=== PATIENT | female | born 1975 | race American Indian/Alaskan Native ===

== ENCOUNTER 2018-07-28 01:48 | Inpatient (IN) | payer MEDICAID ==
[2018-07-28] MEDS ORDERED: LACTATED RINGERS 500 ML IV ONE (03:29)
[2018-07-28] MEDS ORDERED: AMBIEN PO PRN (03:42)
[2018-07-28] MEDS ORDERED: ZOFRAN IV PRN ×2 (03:42→22:02)
[2018-07-28] MEDS ORDERED: ZOFRAN ONE ×2 (03:43→19:07)
[2018-07-28 03:44] LABS: Hematocrit 40.6 % (30.3-42.9); Hemoglobin 13.4 gm/dl (10.1-14.3); Mean Corpuscular HGB Conc 33 % (30-34); Mean Corpuscular Volume 82 fl (79-97); Platelet Count 146 K/mm3 (140-440); Red Blood Count 4.98 M/mm3 (3.65-5.03); Red Cell Distribution Width 15.9 % (13.2-15.2)
[2018-07-28] MEDS ORDERED: LACTATED RINGERS 1,000 ML IV SCH ×3 (04:00→18:00)
[2018-07-28] MEDS ORDERED: MAGNESIUM SULFATE 4GM/100ML 4 GM/100 ML BAG IV ONE (04:03)
[2018-07-28 04:09] LABS: Alanine Aminotransferase 323 units/L (7-56); Uric Acid 5.7 mg/dL (3.5-7.6)
[2018-07-28 04:09] LABS: Amorphous Crystals,Urine 2+; Bilirubin,Urine NEG (Negative); Blood,Urine SM (Negative); Color,Urine Amber (Yellow); Mucus,Urine FEW /HPF; Urobilinogen,Urine < 2.0 mg/dL (<2.0)
[2018-07-28 04:13] LABS: Protein,Urine >500 mg/dL (Negative)
[2018-07-28] MEDS: TYLENOL PO PRN (04:14)
[2018-07-28] MEDS: MAGNESIUM SULFATE 40GM/1000ML 40 GM/1,000 ML BAG IV SCH (04:49)
[2018-07-28] MEDS ORDERED: APRESOLINE IV ONE (05:31)
[2018-07-28] MEDS ORDERED: APRESOLINE IV PRN (05:36)
[2018-07-28] MEDS: NORMODYNE PO SCH ×2 (05:48→11:32)
[2018-07-28 09:12] LABS: INR 1.01 (0.87-1.13)
[2018-07-28 09:13] LABS: Partial Thromboplastin Time 29.5 Sec. (24.2-36.6)
--- NOTE | 2018-07-28 09:46 | History and Physical Report ---
History of Present Illness Date of examination: 07/28/18 Date of admission: 07/28/18 03:56 Chief complaint: I'm having pain and vomiting. History of present illness: Pt is a 42 year old who presents to L&D with complaint of headache, RUQ pain that started 3 hours after eating and constant spitting (inabilty to swallow spit). Patient denies any history of hypertension with this and she was not on meds. She denies any complications with any of her other pregnancies. records are not available for review. Past History Past Medical History: no pertinent history Past Surgical History: no surgical history Family/Genetic History: none Social history: - Obstetrical History Expected Date of Delivery: 08/19/18 Actual Gestation: 36 Week(s) 6 Day(s) : 5 Number of Living Children: 3 Medications and Allergies Allergies Allergy/AdvReac Type Severity Reaction Status Date / Time No Known Allergies Allergy Unverified 07/28/18 03:01 Active Meds: Active Medications Acetaminophen (Tylenol) 650 mg PO Q6H PRN PRN Reason: Pain, Mild (1-3) Last Admin: 07/28/18 04:14 Dose: 650 mg Documented by: Hydralazine HCl (Apresoline) 5 mg IV Q30MIN PRN PRN Reason: Blood Pressure Lactated Ringer's (Lactated Ringers) 1,000 mls @ 75 mls/hr IV DIRECT LUIS MANUEL Last Admin: 07/28/18 05:12 Dose: 75 mls/hr Documented by: Magnesium Sulfate (Magnesium Sulfate 40gm/1000ml) 40 gm in 1,000 mls @ 50 mls/hr IV DIRECT LUIS MANUEL Last Admin: 07/28/18 04:49 Dose: 2 gm/hr, 50 mls/hr Documented by: Labetalol HCl (Normodyne) 200 mg PO BID LUIS MANUEL Last Admin: 07/28/18 05:48 Dose: 200 mg Documented by: Ondansetron HCl (Zofran) 4 mg IV Q4H PRN PRN Reason: Nausea And Vomiting Last Admin: 07/28/18 04:15 Dose: 4 mg Documented by: Zolpidem Tartrate (Ambien) 10 mg PO QHS PRN PRN Reason: Insomnia Review of Systems All systems: negative Constitutional: malaise Ears, nose, mouth and throat: other (ptylism) Gastrointestinal: nausea, vomiting Genitourinary: contractions - Vital Signs Vital signs: Vital Signs Pulse BP 62 197/97 07/28/18 01:55 07/28/18 01:55 Temp Pulse Resp BP Pulse Ox 97.9 F 101 H 18 123/56 95 07/28/18 03:59 07/28/18 09:34 07/28/18 03:59 07/28/18 09:21 07/28/18 09:34 - Physical Exam Breasts: Positive: deferred Cardiovascular: Regular rate, Normal S1, Normal S2 Lungs: Positive: Clear to auscultation, Normal air movement Abdomen: Positive: normal appearance, soft, normal bowel sounds. Negative: distention, tenderness Genitourinary (Female): Positive: normal external genitalia Vulva: both: normal Vagina: Positive: normal moisture. Negative: discharge Cervix: Negative: lesion, discharge Uterus: Positive: normal size, normal contour Adnexa: both: normal Anus/Rectum: Positive: normal perianal skin, heme negative. Negative: rectal mass, hemorrhoids Extremities: Deep Tendon Reflex Grade: Normal +2 - Obstetrical FHR: auscultation normal Cervical Dilatation: 3 Cervical Effacement Percentage: 50 station: posterior Uterine Contraction Frequency (min): 6 Uterine Contraction Pattern: Irregular Results Result Diagrams: 07/28/18 02:45 07/28/18 02:45 Abnormal lab results 07/28/18 07/28/18 07/28/18 Range/Units 02:45 02:45 03:50 WBC 12.2 H (4.5-11.0) K/mm3 MCH 27 L (28-32) pg RDW 15.9 H (13.2-15.2) % AST 388 H (5-40) units/L ALT 323 H (7-56) units/L Lactate Dehydrogenase 756 H (91-180) units/L Urine WBC (Auto) 11.0 H (0.0-6.0) /HPF U Epithel Cells (Auto) 26.0 H (0-13.0) /HPF All other labs normal. Assessment and Plan IUP at 36.6 weeks with here with sudden onset RUQ pain and vomiting and elevated BP, which is now resolved. Patient has persistent ptyalism but has not had any recent vomiting. Patient has elevated liver enzymes as well as moderate protein. Dff Dx: Pre-eclampsia vs. Acute cholecystitis. Will begin magnesium for seizure prophylaxis while collecting 24 hour urine. Repeat labs in the am. Continue to monitor. Continue NPO.
[2018-07-28 14:59] LABS: Alanine Aminotransferase 540 units/L (7-56)
[2018-07-28 16:16] LABS: Basophils % (Auto) 0.1 % (0.0-1.8); Eosinophils % (Auto) 0.1 % (0.0-4.3); Hematocrit 30.1 % (30.3-42.9); Hemoglobin 10.2 gm/dl (10.1-14.3); Lymphocytes # (Auto) 1.4 K/mm3 (1.2-5.4); Lymphocytes % (Auto) 13.3 % (13.4-35.0); Mean Corpuscular HGB Conc 34 % (30-34); Mean Corpuscular Volume 81 fl (79-97); Monocytes # (Auto) 0.8 K/mm3 (0.0-0.8); Monocytes % (Auto) 7.9 % (0.0-7.3); Red Cell Distribution Width 15.7 % (13.2-15.2)
[2018-07-28 16:20] LABS: Platelet Count 51 K/mm3 (140-440)
[2018-07-28 16:28] LABS: Uric Acid 6.7 mg/dL (3.5-7.6)
[2018-07-28] MEDS ORDERED: NACL 0.9% 500 ML 500 ML IV ONE ×3 (16:55→17:22)
[2018-07-28] MEDS ORDERED: BICITRA ONE (17:29)
[2018-07-28] MEDS ORDERED: REGLAN ONE (17:30)
[2018-07-28] MEDS ORDERED: PEPCID IV ONE ×2 (17:30→19:00)
[2018-07-28] MEDS ORDERED: PITOCin/NS 20 UNIT/1000ML DRIP 20,000 MILLIUNITS/1,000 ML BAG IV ONE (17:38)
[2018-07-28] MEDS ORDERED: ANCEF/STERILE WATER 2 GM/20 ML 2 GM/20 ML SYRINGE IV NR (18:00)
[2018-07-28] MEDS ORDERED: PITOCin/NS 20 UNIT/1000ML DRIP 20 UNITS/1,000 ML BAG IV SCH ×2 (18:00→22:02)
[2018-07-28] MEDS ORDERED: TRANEXAMIC ACID ONE (18:02)
[2018-07-28] MEDS ORDERED: Vasostrict ONE (18:06)
[2018-07-28] MEDS ORDERED: QUELICIN ONE (18:10)
[2018-07-28] MEDS ORDERED: DIPRIVAN 10 MG/ML IV ONE (18:10)
[2018-07-28] MEDS ORDERED: NEO SYNEPHRINE/NS Syringe(OR USE) IV ONE (18:10)
--- NOTE | 2018-07-28 18:19 | Event Note ---
Date: 07/28/18 Received call from nurse that she had drawn repeat labs this [place] [id number] and that her LFTs had risen to over 500. Platelets ordered for transfusion, but not available in house. Staff advised by blood bank that they had to contact [facility] to receive platelets, however they could not get an ETA for arrival of platelets. At this point the patient requires an urgent for HELLP. After discussing with anesthesia, will proceed with surgery and transfuse ffp and rbcs while awaiting information from [facility].
[2018-07-28] MEDS ORDERED: NACL 0.9% 250ML 250 ML ONE (18:28)
[2018-07-28] MEDS ORDERED: ACD-A 500 ML IV ONE (18:45)
[2018-07-28] MEDS ORDERED: WATER FOR IRRIG STERILE IR ONE (18:48)
[2018-07-28] MEDS ORDERED: NACL 0.9% IR ONE (18:48)
[2018-07-28] MEDS ORDERED: HEMABATE IM ONE ×2 (19:00)
[2018-07-28] MEDS ORDERED: BICITRA PO ONE (19:00)
[2018-07-28] MEDS ORDERED: REGLAN IV ONE (19:00)
[2018-07-28] MEDS ORDERED: SUBLIMAZE ONE (19:04)
[2018-07-28] MEDS ORDERED: NACL 0.9% 1000 ML 3,000 ML ONE (19:06)
[2018-07-28] MEDS ORDERED: DECADRON ONE (19:07)
[2018-07-28] MEDS ORDERED: NACL 0.9% 1000 ML 1,000 ML ONE (19:30)
[2018-07-28] MEDS ORDERED: METHERGINE IM ONE (20:00)
[2018-07-28] MEDS ORDERED: ROBINUL ONE (20:03)
[2018-07-28] MEDS ORDERED: BLOXIVERZ ONE (20:03)
--- NOTE | 2018-07-28 20:21 | Procedure Note ---
OB Delivery Note - Delivery Date of Delivery: 07/28/18 Surgeon: RENAE MOREL Estimated blood loss: other (1500) - Section Preop diagnosis: other (HELLP) Postop diagnosis: same section procedure: primary low transverse Disposition: PACU Complications: transfusion (2 units RBCs, 2 units FFP) Narrative: see op report - Infant A at 1 minute: 7 at 5 minutes: 8 Gender: Female (5 pounds 15 ounces 1854g)
[2018-07-28] MEDS ORDERED: DILAUDID IV PRN ×2 (20:29→22:02)
--- NOTE | 2018-07-28 20:29 | Operative Report ---
Operative Report Operative Report: The operative report for patient Whit Murcia Date of service 07/28/2018 Preoperative diagnosis: Intrauterine at 36-6/7 weeks 2. HELLP syndrome Postoperative diagnosis: Same Procedure: Primary low transverse section Surgeon: Dr. Aisha Khan Anesthesia: Gen. EBL: 1500 mL Urine output: 200 mL IV fluids: 2500 mL LR/ 500 mLRBCs/ 587 mL fresh frozen plasmA/ 350 mL via Cell Saver Findings: Viable female in the vertex occiput anterior position. Weight 5 lbs. 15 oz. 2708 g Apgars 7 and 8. Multiple uterine fibroids of various sizes Specimens: None Complications: None Procedure: The patient was admitted to the OR with IV running and in place. She was properly identified as herself. She was placed in the dorsal supine position with a leftward tilt. A Rogers catheter had been inserted prior to coming to the OR. She was then prepped and draped in the normal sterile fashion. She was placed under general anesthesia. Upon signal from the anesthesiologist, the incision was made with the scalpel and carried to the underlying fascia using the scalpel and the Bovie. The fascia was incised in the midline and incision was extended bilaterally using the curved Gilbert scissors. The fascia was then dissected from the underlying rectus muscles in a series of sharp and blunt dissection using the Gilbert scissors. Muscles were in the in the midline sharply using Metzenbaum scissors and the peritoneum was entered into bluntly using the surgeon's fingers. A bladder blade was then placed into the incision to protect the bladder. Following this the bladder flap was created. Hysterotomy incision was then made in the scalpel. Upon uterine entry, the amniotic sac was ruptured for clear fluid. The infant was then delivered in the occiput anterior position. Her mouth and nose were suctioned on the field. The cord was clamped and cut and she was handed to the waiting NICU personnel. The placenta was delivered manually and taken off the field. The uterus was then exteriorized and cleared of all clots and debris. The hysterotomy incision was then closed in a running locked fashion using 0 Vicryl. Secondary sutures were used to help further control bleeding. The abdomen was then copiously irrigated with warm normal saline. Following this the uterus was replaced into the abdominal cavity. Pieces of Surgicel were placed on the anterior wall of the uterus overlying the incision. At this point the muscles were reapproximated in the midline using individual sutures of 0 Vicryl. Following this the fascia was closed in a running fashion using 0 Vicryl. Tissue was then copiously irrigated. . Skin was closed with hilda. The sponge lap needle and instrument counts were correct 2. The patient tolerated the procedure well. She was taken to recovery in stable condition.
--- NOTE | 2018-07-28 20:32 | Anesthesia Consultation ---
Anesthesia Consult and Med Hx - Airway Anesthetic Teeth Evaluation: Good ROM Head & Neck: Inadequate Mental/Hyoid Distance: Adequate Mallampati Class: Class III Intubation Access Assessment: Possibly Difficult - Pulmonary Exam CTA: Yes - Cardiac Exam Cardiac Exam: RRR - Pre-Operative Health Status ASA Pre-Surgery Classification: ASA3, Emergency Proposed Anesthetic Plan: General (glidescope) - Pulmonary Hx Asthma: No - Cardiovascular System Hx Hypertension: No - Central Nervous System Hx Seizures: No Hx Psychiatric Problems: No - Endocrine Hx Renal Disease: No Hx Hypothyroidism: No Hx Hyperthyroidism: No - Hematic Hx Anemia: No Hx Sickle Cell Disease: No - Other Systems Hx Alcohol Use: No
--- NOTE | 2018-07-28 20:33 | Anesthesia Day of Surgery ---
Anesthesia Day of Surgery - Day of Surgery Patient Examined: Yes Patient H&P Reviewed: Yes Patient is NPO: Yes Beta Blockers: Yes Cardiac Clearance: No Pulmonary Clearance: No Sanchez's Test: N/A
--- NOTE | 2018-07-28 20:35 | Post Anesthesia Evaluation ---
- Post Anesthesia Evaluation Patient Participated: No (sedated) Airway Patent: Yes Stable Respiratory Function: Yes Nausea/Vomiting: Yes Temp > 96.8F: Yes Pain Manageable: Yes Adequeate Hydration: Yes Anesthesia Complications: No Block Receding Appropriately: Not Applicable Patient on Ventilator: No
[2018-07-28] MEDS ORDERED: BENADRYL IV PRN (22:02)
[2018-07-28] MEDS ORDERED: PHENERGAN PR PRN (22:02)
[2018-07-28] MEDS ORDERED: LANSINOH TP PRN (22:02)
[2018-07-28] MEDS ORDERED: DILAUDID PCA 6MG/30ML IV SCH (22:02)
[2018-07-28] MEDS ORDERED: NARCAN 0.4 MG/1 ML IV PRN ×2 (22:02)
[2018-07-28] MEDS ORDERED: TUCKS PAD TP PRN (22:02)
[2018-07-28] MEDS ORDERED: SODIUM CHLORIDE FLUSH SYRINGE 10 ML IV NR (22:02)
[2018-07-29] MEDS: D5LR 1,000 ML IV SCH ×2 (00:02→13:16)
--- NOTE | 2018-07-29 08:55 | Progress Note ---
Assessment and Plan - Patient Problems (1) HELLP syndrome Current Visit: Yes Status: Acute Plan to address problem: monitoring in the ICU on magnesium drip awaiting am cbc results currently normotensive will complete minimum of 24hrs of magnesium then reassess Subjective - Subjective Date of service: 07/29/18 Interval history: Patient is pod #1 s/p for HELLP. The patient is without any significant complaints. Has not had any seizure activity. Currently receiving magnesium in the ICU. CBC pending this am. Patient reports: pain well controlled Objective - Vital Signs Latest vital signs: Vital Signs Temp Pulse Resp BP Pulse Ox 07/29/18 07:30 111 H 23 113/71 93 07/29/18 07:21 108 H 10 L 106/75 97 07/29/18 07:11 103 H 11 L 103/70 97 07/29/18 07:01 96 H 16 103/70 96 07/29/18 06:51 97 H 14 83/63 96 07/29/18 06:41 91 H 15 112/76 97 07/29/18 06:30 106 H 20 112/76 94 07/29/18 06:21 95 H 18 86/32 96 07/29/18 06:11 99 H 18 96/50 96 07/29/18 06:00 113 H 20 96/50 89 07/29/18 05:51 99 H 20 109/66 95 07/29/18 05:41 90 14 108/59 96 07/29/18 05:30 89 14 108/59 95 07/29/18 05:21 90 17 127/58 97 07/29/18 05:11 88 19 117/59 97 07/29/18 05:00 87 17 117/59 95 07/29/18 04:58 20 97 07/29/18 04:57 97.7 F 07/29/18 04:51 93 H 22 112/57 97 07/29/18 04:41 122/64 96 07/29/18 04:30 92 H 17 122/64 94 07/29/18 04:21 106 H 22 116/62 96 07/29/18 04:11 91 H 12 133/60 98 07/29/18 04:00 85 15 133/60 95 07/29/18 03:51 87 18 122/65 97 07/29/18 03:41 89 17 125/70 98 07/29/18 03:30 87 16 125/70 96 07/29/18 03:21 87 21 136/71 98 07/29/18 03:11 99 H 16 136/71 98 07/29/18 03:00 91 H 17 136/71 95 07/29/18 02:51 96 H 13 131/70 98 07/29/18 02:41 91 H 14 131/70 97 07/29/18 02:30 88 16 131/70 96 07/29/18 02:21 89 16 121/74 97 07/29/18 02:11 95 H 16 126/78 97 07/29/18 02:00 96 H 16 126/78 95 07/29/18 01:51 97 H 16 122/79 98 07/29/18 01:41 96 H 15 145/76 98 07/29/18 01:30 95 H 17 145/76 97 07/29/18 01:21 95 H 18 124/78 98 07/29/18 01:15 98.5 F 07/29/18 01:11 96 H 18 133/72 98 07/29/18 01:00 92 H 19 133/72 96 07/29/18 00:51 103 H 24 124/78 89 07/29/18 00:41 100 H 22 135/68 91 07/29/18 00:30 103 H 19 135/68 89 07/29/18 00:21 103 H 21 127/75 90 07/29/18 00:11 101 H 25 H 121/70 92 07/29/18 00:00 100 H 16 121/70 90 07/28/18 23:51 99 H 15 114/63 92 07/28/18 23:41 93 H 23 114/63 93 07/28/18 23:31 96 H 27 H 114/63 94 07/28/18 23:21 97 H 20 123/80 93 07/28/18 23:11 90 19 120/80 92 07/28/18 23:00 100 H 14 120/80 92 07/28/18 22:51 91 H 25 H 120/79 94 07/28/18 22:41 94 H 17 120/76 94 07/28/18 22:31 98.7 F 94 H 18 120/76 94 07/28/18 22:30 92 H 18 120/76 93 04/21/19 22:21 92 H 19 130/81 96 07/28/18 22:11 87 20 133/73 97 07/28/18 22:00 97.7 F 81 21 133/73 100 07/28/18 21:51 85 12 135/79 100 07/28/18 21:41 124/88 100 07/28/18 21:30 81 24 107/73 07/28/18 21:23 91 H 18 07/28/18 21:18 105 H 07/28/18 21:00 95 H 18 131/79 100 07/28/18 20:55 94 H 22 140/88 100 07/28/18 20:51 97.8 F 07/28/18 20:50 90 16 131/86 100 07/28/18 20:45 86 14 140/90 100 07/28/18 20:40 72 13 163/98 100 07/28/18 20:35 69 14 1639/98 100 07/28/18 20:23 97.6 F 72 14 169/102 100 07/28/18 18:29 79 96 07/28/18 18:24 83 96 07/28/18 18:23 85 138/82 07/28/18 18:19 74 97 07/28/18 18:14 80 96 07/28/18 18:09 76 96 07/28/18 18:04 78 95 07/28/18 17:59 75 97 07/28/18 17:54 75 112/54 96 07/28/18 17:49 79 96 07/28/18 17:44 77 97 07/28/18 17:39 88 96 07/28/18 17:34 84 96 07/28/18 17:29 78 96 07/28/18 17:24 79 95 07/28/18 17:22 77 156/73 07/28/18 17:19 80 96 07/28/18 17:14 87 95 07/28/18 17:09 82 96 07/28/18 17:04 85 97 07/28/18 16:59 79 94 07/28/18 16:54 78 94 07/28/18 16:52 77 148/70 07/28/18 16:49 74 93 07/28/18 16:44 77 92 07/28/18 16:39 79 95 07/28/18 16:34 80 97 07/28/18 16:29 78 96 04/21/19 16:24 82 96 07/28/18 16:21 85 135/70 07/28/18 16:19 94 H 98 07/28/18 16:14 81 94 07/28/18 16:09 80 95 07/28/18 16:04 85 96 07/28/18 15:59 77 96 07/28/18 15:54 88 96 07/28/18 15:51 85 134/63 07/28/18 15:49 92 H 96 07/28/18 15:44 79 94 07/28/18 15:39 75 93 07/28/18 15:34 81 95 07/28/18 15:29 88 95 07/28/18 15:24 87 97 07/28/18 15:22 85 135/74 07/28/18 15:19 87 95 07/28/18 15:14 89 96 07/28/18 15:09 87 96 07/28/18 15:04 85 95 07/28/18 14:52 87 127/60 07/28/18 14:50 90 96 07/28/18 14:44 84 97 07/28/18 14:39 83 97 07/28/18 14:34 88 97 07/28/18 14:29 85 98 07/28/18 14:24 79 97 07/28/18 14:21 87 120/63 07/28/18 14:19 88 97 07/28/18 14:14 87 97 07/28/18 14:09 84 98 07/28/18 14:04 89 97 07/28/18 13:59 89 96 07/28/18 13:54 90 97 07/28/18 13:51 90 131/75 07/28/18 13:49 89 97 07/28/18 13:44 87 97 07/28/18 13:39 87 96 07/28/18 13:34 90 97 07/28/18 13:29 92 H 97 07/28/18 13:24 96 H 100 07/28/18 13:21 92 H 144/74 07/28/18 13:19 95 H 98 07/28/18 13:14 93 H 99 07/28/18 13:09 89 98 07/28/18 13:04 93 H 98 07/28/18 12:59 91 H 98 07/28/18 12:54 84 99 07/28/18 12:52 99 H 140/64 07/28/18 12:49 94 H 99 07/28/18 12:44 87 99 07/28/18 12:39 86 99 07/28/18 12:34 92 H 99 07/28/18 12:29 88 98 07/28/18 12:24 92 H 98 07/28/18 12:22 95 H 131/60 07/28/18 12:19 92 H 99 07/28/18 12:14 88 95 07/28/18 12:09 88 94 07/28/18 12:04 95 H 94 07/28/18 11:59 94 H 94 07/28/18 11:54 94 H 94 07/28/18 11:51 97 H 141/65 07/28/18 11:49 93 H 95 07/28/18 11:44 91 H 95 07/28/18 11:39 94 H 95 07/28/18 11:34 94 H 95 07/28/18 11:29 93 H 96 07/28/18 11:24 98 H 94 07/28/18 11:21 90 130/59 07/28/18 11:19 93 H 95 07/28/18 11:14 118 H 95 07/28/18 11:09 104 H 96 07/28/18 11:04 102 H 96 07/28/18 10:59 100 H 94 07/28/18 10:54 112 H 95 07/28/18 10:52 91 H 140/64 07/28/18 10:49 101 H 94 07/28/18 10:44 101 H 95 07/28/18 10:39 106 H 96 07/28/18 10:34 100 H 96 07/28/18 10:29 106 H 96 07/28/18 10:24 98 H 97 07/28/18 10:21 104 H 123/60 07/28/18 10:19 108 H 97 07/28/18 10:14 99 H 98 07/28/18 10:09 95 H 97 07/28/18 10:04 116 H 98 07/28/18 09:59 90 99 07/28/18 09:54 82 99 07/28/18 09:51 98 H 125/59 07/28/18 09:49 99 H 100 07/28/18 09:44 107 H 99 07/28/18 09:39 89 100 07/28/18 09:34 101 H 95 07/28/18 09:29 98 H 95 07/28/18 09:24 102 H 93 07/28/18 09:21 97 H 123/56 07/28/18 09:19 98 H 95 07/28/18 09:14 107 H 93 07/28/18 09:09 116 H 97 07/28/18 09:04 95 H 94 07/28/18 08:59 102 H 94 07/28/18 08:54 93 H 94 Intake and Output 07/28/18 07/29/18 07/29/18 22:59 06:59 14:59 Intake Total 4165.94 35 Output Total 350 Balance 3815.94 35 Intake: IV 2705.94 Lactated Ringers 1,000 ml 92.97 @ 75 mls/hr IV DIRECT LUIS MANUEL Rx#:[id number] MAGNESIUM SULFATE 40GM/ 62.97 1000ML 40 gm In 1,000 ml @ 2 GM/HR 50 mls/hr IV DIRECT LUIS MANUEL Rx#:[id number] Blood Product 1460 35 Fresh Frozen Plasma 23 Thawed Unit [id number] Platelet Pheresis Unit 0 17 [id number] Platelet Pheresis Unit 18 [id number] Output: Urine 350 Indwelling Catheter 100 Other: Total, Output Amount 100 Voiding Method Indwelling Catheter Estimated Blood Loss 1,500 - Exam Incision: Present: dressed - Labs Labs: Abnormal lab results 07/28/18 07/28/18 07/28/18 Range/Units 02:45 11:12 14:18 Hct (30.3-42.9) % RDW (13.2-15.2) % Plt Count (140-440) K/mm3 Lymph % (Auto) (13.4-35.0) % [place] % (Auto) (0.0-7.3) % Seg Neutrophils % (40.0-70.0) % Seg Neutrophils # (1.8-7.7) K/mm3 Magnesium 4.60 H (1.7-2.3) mg/dL AST 942 H (5-40) units/L ALT 540 H (7-56) units/L Lactate Dehydrogenase 1373 H (91-180) units/L Crossmatch See Detail 07/28/18 Range/Units 15:59 Hct 30.1 L D (30.3-42.9) % RDW 15.7 H (13.2-15.2) % Plt Count 51 L (140-440) K/mm3 Lymph % (Auto) 13.3 L (13.4-35.0) % [place] % (Auto) 7.9 H (0.0-7.3) % Seg Neutrophils % 78.6 H (40.0-70.0) % Seg Neutrophils # 8.0 H (1.8-7.7) K/mm3 Magnesium (1.7-2.3) mg/dL AST (5-40) units/L ALT (7-56) units/L Lactate Dehydrogenase (91-180) units/L Crossmatch
[2018-07-29 09:41] LABS: Mean Corpuscular HGB Conc 33 % (30-34); Mean Corpuscular Volume 84 fl (79-97); Red Blood Count 2.09 M/mm3 (3.65-5.03); Red Cell Distribution Width 16.2 % (13.2-15.2)
[2018-07-29 09:59] LABS: Hematocrit 17.5 % (30.3-42.9); Hemoglobin 5.8 gm/dl (10.1-14.3); Platelet Count 78 K/mm3 (140-440)
[2018-07-29] MEDS: NORMODYNE PO SCH ×2 (10:37→21:41)
[2018-07-29] MEDS: PRENATAL VITAMIN PO SCH (12:19)
[2018-07-29 12:25] LABS: Alanine Aminotransferase 237 units/L (7-56); BUN/Creatinine Ratio 15; Blood Urea Nitrogen 15 mg/dL (7-17); Calcium 6.6 mg/dL (8.4-10.2); Hemolysis Index 1
[2018-07-29] MEDS: MAGNESIUM SULFATE 40GM/1000ML 40 GM/1,000 ML BAG IV SCH (13:21)
[2018-07-29 13:40] LABS: Basophils % (Auto) 0.2 % (0.0-1.8); Eosinophils % (Auto) 0.1 % (0.0-4.3); Lymphocytes % (Auto) 7.1 % (13.4-35.0); Mean Corpuscular HGB Conc 33 % (30-34); Mean Corpuscular Volume 83 fl (79-97); Monocytes # (Auto) 1.2 K/mm3 (0.0-0.8); Monocytes % (Auto) 8.5 % (0.0-7.3); Red Blood Count 1.94 M/mm3 (3.65-5.03); Red Cell Distribution Width 16.2 % (13.2-15.2)
[2018-07-29 13:45] LABS: Hematocrit 16.2 % (30.3-42.9); Hemoglobin 5.4 gm/dl (10.1-14.3); Platelet Count 71 K/mm3 (140-440)
[2018-07-29] MEDS ORDERED: NACL 0.9% 500 ML 500 ML IV NR (14:01)
--- NOTE | 2018-07-29 14:14 | Consultation ---
History of Present Illness Consult date: 07/29/18 Requesting physician: RENAE MOREL Reason for consult: other (HELLP Syndrome; ABLA) History of present illness: PULMONARY/CCM CONSULT NOTE (Full dictation # [id number]) Please see dictated notes for full details Past History Social history: Medications and Allergies Allergies Allergy/AdvReac Type Severity Reaction Status Date / Time No Known Allergies Allergy Unverified 07/28/18 03:01 Active Meds: Active Medications Acetaminophen (Tylenol) 650 mg PO Q6H PRN PRN Reason: Pain, Mild (1-3) Last Admin: 07/28/18 04:14 Dose: 650 mg Documented by: Diphenhydramine HCl (Benadryl) 25 mg IV Q4H PRN PRN Reason: Itching Famotidine (Pepcid) 20 mg PO DAILY LUIS MANUEL Hydralazine HCl (Apresoline) 5 mg IV Q30MIN PRN PRN Reason: Blood Pressure Hydromorphone HCl (Dilaudid) 0.5 mg IV Q3H PRN PRN Reason: Pain , Severe (7-10) Hydromorphone/Sodium Chloride (Dilaudid [employer] 6mg/30ml) 0 mg IV DIRECT LUIS MANUEL; Protocol Last Admin: 07/29/18 00:41 Dose: 0.2 mg Documented by: Magnesium Sulfate (Magnesium Sulfate 40gm/1000ml) 40 gm in 1,000 mls @ 50 mls/hr IV DIRECT LUIS MANUEL Last Admin: 07/29/18 13:21 Dose: 2 gm/hr, 50 mls/hr Documented by: Dextrose/Lactated Ringer's (D5lr) 1,000 mls @ 125 mls/hr IV DIRECT LUIS MANUEL Last Infusion: 07/29/18 13:20 Dose: 75 mls/hr Documented by: Oxytocin/Sodium Chloride (Pitocin/Ns 20 Unit/1000ml Drip) 20 units in 1,000 mls @ 250 mls/hr IV DIRECT LUIS MANUEL Sodium Chloride (Nacl 0.9% 500 Ml) 500 mls @ 0 mls/hr IV ONCE NR Stop: 07/29/18 23:59 Labetalol HCl (Normodyne) 200 mg PO BID LUIS MANUEL Last Admin: 07/29/18 10:37 Dose: Not Given Documented by: Multi-Ingredient Ointment (Lansinoh) 1 applic TP PRN PRN PRN Reason: dryness/cracking Multivitamins/Iron/Calcium ( Vitamin) 1 each PO QDAY LUIS MANUEL Last Admin: 07/29/18 12:19 Dose: 1 each Documented by: Naloxone HCl (Narcan 0.4 Mg/1 Ml) 0.1 mg IV Q2MIN PRN PRN Reason: Res Rate </= 8 or 02 SAT < 92% Ondansetron HCl (Zofran) 4 mg IV Q8H PRN PRN Reason: N/V unrelieved by Reglan Oxycodone/Acetaminophen (Percocet 5/325) 2 tab PO Q4H PRN PRN Reason: Pain, Moderate (4-6) Promethazine HCl (Phenergan) 25 mg OR Q6H PRN PRN Reason: Nausea And Vomiting Sodium Chloride (Sodium Chloride Flush Syringe 10 Ml) 10 ml IV PRN NR Stop: 07/29/18 22:01 Witch Mercedez/Glycerin (Tucks Pad) 1 each TP PRN PRN PRN Reason: Hemorrhoids/cleansing/soothing Physical Examination Vital signs: Vital Signs Pulse BP 62 197/97 07/28/18 01:55 07/28/18 01:55 Results - Laboratory Findings CBC and BMP: 07/29/18 13:31 07/29/18 11:57 PT/INR, D-dimer PT 13.9 Sec. (12.2-14.9) 07/28/18 08:41 INR 1.01 (0.87-1.13) 07/28/18 08:41 Abnormal lab findings: Abnormal Labs 07/28/18 07/28/18 07/28/18 02:45 02:45 02:45 WBC 12.2 H RBC Hgb Hct MCH 27 L RDW 15.9 H Plt Count Lymph % (Auto) [place] % (Auto) Lymph # [place] # Seg Neutrophils % Seg Neutrophils # Sodium Glucose Calcium Magnesium AST 388 H ALT 323 H Lactate Dehydrogenase 756 H Total Protein Albumin Urine WBC (Auto) U Epithel Cells (Auto) Crossmatch See Detail 07/28/18 07/28/18 07/28/18 03:50 11:12 14:18 WBC RBC Hgb Hct MCH RDW Plt Count Lymph % (Auto) [place] % (Auto) Lymph # [place] # Seg Neutrophils % Seg Neutrophils # Sodium Glucose Calcium Magnesium 4.60 H AST 942 H ALT 540 H Lactate Dehydrogenase 1373 H Total Protein Albumin Urine WBC (Auto) 11.0 H U Epithel Cells (Auto) 26.0 H Crossmatch 07/28/18 07/29/18 07/29/18 15:59 09:28 11:57 WBC 16.8 H RBC 2.09 L Hgb 5.8 L* D Hct 30.1 L D 17.5 L* D MCH RDW 15.7 H 16.2 H Plt Count 51 L 78 L Lymph % (Auto) 13.[address] [place] % (Auto) 7.9 H Lymph # [place] # Seg Neutrophils % 78.6 H Seg Neutrophils # 8.0 H Sodium 136 L Glucose 111 H Calcium 6.6 L Magnesium 6.20 H AST 259 H ALT 237 H Lactate Dehydrogenase Total Protein 4.9 L Albumin 3.0 L Urine WBC (Auto) U Epithel Cells (Auto) Crossmatch 07/29/18 13:31 WBC 13.9 H RBC 1.94 L Hgb 5.4 L* Hct 16.2 L* MCH RDW 16.2 H Plt Count 71 L Lymph % (Auto) 7.[address] [place] % (Auto) 8.5 H Lymph # 1.[address] [place] # 1.2 H Seg Neutrophils % 84.1 H Seg Neutrophils # 11.7 H Sodium Glucose Calcium Magnesium AST ALT Lactate Dehydrogenase Total Protein Albumin Urine WBC (Auto) U Epithel Cells (Auto) Crossmatch
[2018-07-29] MEDS: PEPCID PO SCH (17:28)
[2018-07-29] MEDS: PERCOCET 5/325 PO PRN (20:23)
[2018-07-29] MEDS ORDERED: CHLORASEPTIC MM PRN (22:24)
--- NOTE | 2018-07-30 01:01 | Consultation ---
PULMONARY CRITICAL CARE CONSULT NOTE CONSULTING PHYSICIAN: Aisha Khan MD REASON FOR CONSULTATION: HELLP syndrome, acute blood loss anemia. CHIEF COMPLAINT AND HISTORY OF PRESENT ILLNESS: As follows: The patient is a 42-year-old female without significant past medical history except for being obese, who is a 5, para 4, presented to Labor and Delivery with complaints of a headache, right upper quadrant pain that started 3 hours after eating and dry heaves essentially. She had denied any history of hypertension with her . She was not taking medications. She denied any other complications with other pregnancies. She denied any trauma. There were no records. After evaluation of the patient, it was found that she was essentially fitting the diagnostic criteria for the HELLP syndrome with hemolysis, elevated liver enzymes, and low platelets. She underwent an emergency section I believe with delivery of a live male child. She did lose about 1-1/2 liters of blood, estimated blood loss during the surgery. Post-procedure, Intensive Care Unit admission was requested. When I stopped by to see her, she was resting in bed. She was feeling better. There was no gross bleeding noticed; however, her serum hemoglobin had dropped from about 10 to 5. She denied any nausea or vomiting today. With regards to tobacco use/abuse history, she denied tobacco use. This is much of the history of presentation as I have. PAST MEDICAL HISTORY: None. PAST SURGICAL HISTORY: None. MEDICATIONS: She was on at the time I stopped by to see her were reviewed. Pertinent medications included the following: Tylenol 650 mg p.o. q. 6 hours p.r.n. mild pain or fevers. She was on a D5LR drip at 125 mL per hour, Benadryl 25 mg IV q. 4 hours p.r.n. itching, Pepcid 20 mg p.o. daily, hydralazine 5 mg IV every 30 minutes p.r.n. blood pressure, Dilaudid 0.5 mg IV q. 3 hours p.r.n. severe pain. She was on Dilaudid TOY MECHANIC pump also, labetalol 200 mg p.o. b.i.d., magnesium sulfate drip was going at 2 grams per hour. She gets a daily multivitamin, Zofran 4 mg IV q. 8 hours p.r.n. nausea and vomiting, p.r.n. Narcan also, Percocet 2 tablets p.o. q. 4 hours p.r.n. moderate pain. She had been on a Pitocin drip earlier. Phenergan 25 mg per rectum q. 6 hours p.r.n. nausea and vomiting. She had received Ancef 2 grams IV preoperatively. ALLERGIES: No known drug allergies. DIET: Obese lady. Denies significant weight loss or gain except those related to her . FAMILY AND SOCIAL HISTORY: Lives in the community. She is . Denies alcohol or illicit drug use or abuse or tobacco. FAMILY HISTORY: Otherwise noncontributory. REVIEW OF SYSTEMS: No loss of consciousness. No new onset seizures. No new onset focal weakness. No gross hematochezia or melena. No gross hematuria or dysuria. No hematemesis. She did have the vomiting before she came in. She had the abdominal pain before she came in. She denies polydipsia or polyuria. No heat or cold intolerance. Complete 13-system review of systems obtained. Pertinent positives and/or negatives as in body of history above, otherwise noncontributory. PHYSICAL EXAMINATION: VITAL SIGNS: At presentation, initial temperature was 98.6, pulse was 62, respiratory rate was 22, blood pressure 197/97. At presentation, O2 sats were 97% at the time I saw her and that was on 2 liters nasal cannula. GENERAL: She is a middle-aged female, normocephalic, atraumatic, talking to me with mildly interrupted sentences with mildly increased respiratory effort at rest. HEAD, EYES, EARS, NOSE AND THROAT: She is anicteric. No conjunctival erythema. Oropharynx is moist, is a Mallampati #2 oropharynx. No thyromegaly, no gross jugular venous distention. Grossly, no palpable lymph nodes in the supraclavicular or submandibular lymph node chains. LUNGS: Auscultation of both lung lima revealed bilateral inspiratory basilar rales posteriorly. No wheezing. HEART: Heart sounds 1 and 2 are heard. They were regular in rate and rhythm at the time of my evaluation, without rubs or murmurs. ABDOMEN: Soft. She has a gravid abdomen. Bowel sounds are positive, but diminished. She is tender postop. No palpable hepatosplenomegaly. EXTREMITIES: Without overt digital clubbing or cyanosis and no pedal edema. NEUROLOGIC: Pupils are equal, round, about 3 mm, reactive to light. Extraocular muscle movements are intact. She moves all 4 extremities spontaneously. The skin is of normal turgor without overt cellulitis or rash. Pedal pulses are strong 2+ bilaterally. LABORATORY DATA: From my review are as follows: Admission white cell count 12,200, hemoglobin 13.4, hematocrit 40.6, platelet count 146. No manual differential. INR was 1.01. Serum sodium was 136, potassium 4.9, chloride 101, bicarbonate 26, BUN 15, creatinine 1.0. Glucose 111, calcium 6.6; however, albumin is low at 3.0. AST was 388, went up to 942, ALT up to 540. LDH 1373 at last check. Urinalysis was negative for nitrites and leukocyte esterase. She did have 11 white cells per high power field. Syphilis screen was negative. Non-reactive RPR. Repeat hemoglobin this morning shows hemoglobin of 5.8. White count is up at 16.8. No microbiology studies. No radiographic studies. ASSESSMENT AND PLAN: 1. HELLP syndrome with hemolysis, elevated liver enzymes, and low platelets. 2. Preeclampsia at presentation. 3. Acute blood loss anemia. 4. Obesity. 5. Leukocytosis. 6. Elevated LDH, likely related to hemolysis. PLAN: Bothered about falling hematocrit and hemoglobin. There is no active bleeding. It is unclear if she might need re-exploration. If this is just a reflection of the blood loss that she has had, we will repeat the CBC stat, and if it is indeed low, we will replace packed red cells. I believe she got 2 packed red cells yesterday. She also got some platelets and fibrinogen. Massive transfusion protocol will be observed with transfusions. She has had no seizure activities. The lethargy she complains of is at least partially related to her anemia. She received antibiotics. I will follow her clinically without antibiotics. However in light of the leukocytosis, I will get a CRP level, consider a set of blood cultures, especially if she has any fevers, which she really has not had since admission. She will be placed on GI prophylaxis. DVT prophylaxis is in the form of SCDs. Flu and pneumonia vaccination will be per protocol. We will observe her in the unit overnight and continue to keep a close eye on her serum hemoglobin levels. Hopefully, they stay okay. Oxygen will be weaned to keep sats greater than or equal to about 90%. Incentive spirometer will be offered, but I will get a chest x-ray to ensure we are not dealing with like overt aspiration with an aspiration pneumonia/pneumonitis. Thank you very much for the consult. We will follow along. We will make further recommendations as picture progresses/becomes clearer. JOB# [id number] DEANGELO/TAYA
[2018-07-30 01:32] LABS: Hematocrit 20.2 % (30.3-42.9); Hemoglobin 6.8 gm/dl (10.1-14.3); Mean Corpuscular HGB Conc 34 % (30-34); Mean Corpuscular Volume 87 fl (79-97); Red Blood Count 2.32 M/mm3 (3.65-5.03); Red Cell Distribution Width 17.3 % (13.2-15.2)
[2018-07-30 01:34] LABS: Platelet Count 67 K/mm3 (140-440)
[2018-07-30 05:49] LABS: Hemoglobin 6.9 gm/dl (10.1-14.3)
--- NOTE | 2018-07-30 08:54 | Progress Note ---
Assessment and Plan - Patient Problems (1) HELLP syndrome Current Visit: Yes Status: Acute Plan to address problem: perform CT of abdomen and pelvis will request IR to place drain if hematoma is present discussed the possibility of additional blood products discontinue magnesium Subjective - Subjective Date of service: 07/30/18 Interval history: Patient is pod #2 s/p for HELLP. Denies flatus. H/H has stabilized at 6.9/20 however the patient has received 2 units prbcs prior. Discussed concerns with patient and family that she may have an intraabdominal hematoma. Patient reports: no appetite normal, no flatus Objective - Vital Signs Latest vital signs: Vital Signs Temp Pulse Pulse Resp BP Pulse Ox 07/30/18 08:40 136/67 89 07/30/18 08:30 89 22 136/67 90 07/30/18 08:20 91 H 19 136/67 90 07/30/18 08:10 91 H 20 136/67 89 07/30/18 08:00 91 H 26 H 131/68 91 07/30/18 07:50 85 24 131/68 97 07/30/18 07:48 98.7 F 07/30/18 07:40 88 24 131/68 97 07/30/18 07:30 86 19 131/68 98 07/30/18 07:20 92 H 16 131/68 97 07/30/18 07:10 90 21 131/68 98 07/30/18 07:00 92 H 22 131/68 98 07/30/18 06:50 83 13 136/64 97 07/30/18 06:40 86 16 136/64 97 07/30/18 06:30 84 18 136/64 98 07/30/18 06:20 83 16 136/64 97 07/30/18 06:10 85 18 136/64 97 07/30/18 06:00 95 H 20 121/61 96 07/30/18 05:50 90 17 121/61 96 07/30/18 05:40 93 H 22 121/61 96 07/30/18 05:30 90 17 121/61 07/30/18 05:20 82 13 121/61 97 07/30/18 05:10 82 13 121/61 97 07/30/18 05:00 86 16 121/61 96 07/30/18 04:50 83 11 L 112/62 95 07/30/18 04:40 81 13 112/62 96 07/30/18 04:30 82 14 112/62 96 07/30/18 04:20 84 15 112/62 95 07/30/18 04:10 93 H 23 112/62 92 07/30/18 04:00 99.2 F 91 H 21 112/62 93 07/30/18 03:50 86 13 116/69 95 07/30/18 03:40 85 17 116/69 95 07/30/18 03:30 83 13 116/69 95 07/30/18 03:20 85 20 116/69 93 07/30/18 03:10 91 H 14 96 07/30/18 03:07 89 16 95 07/30/18 02:51 92 H 14 111/65 94 07/30/18 02:41 89 17 111/65 95 07/30/18 02:30 91 H 15 111/65 95 07/30/18 02:21 98 H 20 111/65 93 07/30/18 02:10 91 H 15 111/65 95 07/30/18 02:00 88 14 111/65 94 07/30/18 01:50 91 H 16 115/65 94 07/30/18 01:41 92 H 16 115/65 94 07/30/18 01:31 94 H 21 115/65 95 07/30/18 01:21 97 H 17 115/65 94 07/30/18 01:11 96 H 14 115/65 94 07/30/18 01:00 94 H 16 115/65 94 07/30/18 00:51 99 H 17 112/64 95 07/30/18 00:41 96 H 18 112/64 94 07/30/18 00:31 100 H 18 112/64 94 07/30/18 00:21 97 H 18 112/64 95 07/30/18 00:10 104 H 19 156/70 94 07/30/18 00:01 25 H 156/70 92 07/30/18 00:00 96 07/29/18 23:51 106 H 22 156/70 96 07/29/18 23:41 109 H 24 156/70 95 07/29/18 23:30 106 H 20 156/70 94 07/29/18 23:21 109 H 27 H 141/82 92 07/29/18 23:11 107 H 21 141/82 93 07/29/18 23:05 111 H 25 H 141/82 92 07/29/18 23:00 116 H 21 141/82 90 07/29/18 22:59 99.3 F 07/29/18 22:57 118 H 15 123/64 91 07/29/18 22:51 110 H 23 123/64 93 07/29/18 22:41 112 H 20 123/64 93 07/29/18 22:30 112 H 22 123/64 92 07/29/18 22:21 111 H 17 140/75 92 07/29/18 22:11 109 H 16 140/75 93 07/29/18 22:00 99.4 F 110 H 19 140/75 94 07/29/18 21:51 112 H 32 H 139/77 92 07/29/18 21:41 115 H 12 139/77 92 07/29/18 21:30 113 H 18 170/133 92 07/29/18 21:21 114 H 21 110/38 92 07/29/18 21:11 113 H 17 110/38 94 07/29/18 21:00 112 H 25 H 110/38 94 07/29/18 20:52 99.4 F 112 H 23 110/58 95 07/29/18 20:51 106 H 18 135/54 96 07/29/18 20:41 107 H 21 135/54 96 07/29/18 20:30 106 H 25 H 135/54 95 07/29/18 20:22 99.8 F H 108 H 21 135/54 110 H 07/29/18 20:21 110 H 20 114/59 93 07/29/18 20:11 106 H 21 114/59 95 07/29/18 20:07 98.9 F 109 H 20 114/59 96 07/29/18 20:03 98.9 F 105 H 23 114/59 95 07/29/18 20:00 106 H 20 114/59 96 07/29/18 19:53 99.4 F 07/29/18 19:51 107 H 18 118/65 95 07/29/18 19:41 105 H 22 118/65 96 07/29/18 19:31 103 H 19 118/65 94 07/29/18 19:21 105 H 26 H 157/81 96 07/29/18 19:11 106 H 26 H 157/81 95 07/29/18 19:01 107 H 29 H 157/81 95 07/29/18 18:55 99 F 109 H 22 134/60 94 07/29/18 18:51 109 H 26 H 134/60 95 07/29/18 18:41 104 H 21 134/60 94 07/29/18 18:30 104 H 18 134/60 95 07/29/18 18:28 99.2 F 106 H 17 129/76 96 07/29/18 18:21 105 H 23 129/76 96 07/29/18 18:11 104 H 22 129/76 96 07/29/18 18:06 99.4 F 109 H 22 129/76 96 07/29/18 18:00 103 H 21 129/76 96 07/29/18 17:51 103 H 23 149/81 96 07/29/18 17:43 99.5 F 104 H 22 149/81 96 07/29/18 17:41 104 H 26 H 149/81 96 07/29/18 17:30 106 H 22 149/81 94 07/29/18 17:21 99 F 104 H 18 148/75 94 07/29/18 17:11 111 H 20 148/75 95 07/29/18 17:00 105 H 21 148/75 97 07/29/18 16:51 99.3 F 115 H 19 131/68 97 07/29/18 16:41 106 H 21 131/68 98 07/29/18 16:31 108 H 21 123/50 98 07/29/18 16:21 106 H 12 136/64 96 07/29/18 16:16 99 F 105 H 14 136/64 96 07/29/18 16:11 105 H 16 131/68 97 07/29/18 16:01 98.5 F 103 H 17 131/68 97 07/29/18 16:00 98.9 F 105 H 16 97 07/29/18 15:51 106 H 18 129/75 99 07/29/18 15:44 98.3 F 109 H 26 H 129/75 98 07/29/18 15:41 106 H 24 125/71 98 07/29/18 15:30 98.7 F 109 H 26 H 132/73 97 07/29/18 15:21 107 H 28 H 114/62 98 07/29/18 15:11 105 H 11 L 131/73 96 07/29/18 15:00 105 H 12 125/71 96 07/29/18 14:51 104 H 11 L 131/73 96 07/29/18 14:41 103 H 20 114/65 96 07/29/18 14:31 101 H 20 134/63 97 07/29/18 14:21 119 H 17 114/65 93 07/29/18 14:11 100 H 21 114/63 98 07/29/18 14:01 103 H 24 103/51 99 07/29/18 13:51 105 H 27 H 114/63 98 07/29/18 13:41 102 H 28 H 110/56 97 07/29/18 13:31 100 H 24 110/56 98 07/29/18 13:21 104 H 22 110/56 98 07/29/18 13:11 108 H 25 H 114/64 98 07/29/18 13:01 110 H 16 125/67 95 07/29/18 12:51 101 H 22 125/68 98 07/29/18 12:41 97 H 23 111/71 97 07/29/18 12:30 98 H 21 114/64 97 07/29/18 12:21 100 H 18 113/65 98 07/29/18 12:11 96 H 19 111/61 97 07/29/18 12:00 98.3 F 98 H 102 H 20 111/71 98 07/29/18 11:55 102 H 07/29/18 11:51 98 H 18 113/61 98 07/29/18 11:41 104 H 23 114/65 98 07/29/18 11:30 97 H 24 111/61 95 07/29/18 11:21 112 H 30 H 108/64 94 07/29/18 11:11 93/46 97 07/29/18 11:01 96 H 22 114/65 97 07/29/18 10:51 100 H 26 H 96/42 97 07/29/18 10:40 98 H 25 H 86/54 97 07/29/18 10:37 98 H 93/46 07/29/18 10:30 101 H 93/46 94 07/29/18 10:21 96 H 86/54 97 07/29/18 10:11 107 H 101/56 97 07/29/18 10:01 101 H 101/56 95 07/29/18 09:51 114 H 27 H 113/56 96 07/29/18 09:41 103 H 15 131/65 97 07/29/18 09:31 103 H 22 131/65 97 07/29/18 09:21 95 H 29 H 124/55 96 07/29/18 09:11 104 H 131/65 98 07/29/18 09:00 99 H 131/65 93 07/29/18 08:58 109 H 16 98 Intake and Output 07/29/18 07/30/18 07/30/18 22:59 06:59 14:59 Intake Total 650 Output Total 1250 Balance 650 -1250 Intake: IV 150 D5lr 1,000 ml @ 125 mls/ 150 hr IV DIRECT LUIS MANUEL Rx#: [id number] Blood Product 500 Fresh Frozen Plasma 0 Thawed Unit [id number] Leukoreduced Red Blood 250 Cells Unit [id number] Leukoreduced Red Blood 250 Cells Unit [id number] Output: Urine 1250 Indwelling Catheter 1250 Other: Total, Output Amount 1250 Voiding Method Indwelling Catheter Indwelling Catheter - Exam Lungs: Present: Other (labored while on RA) Abdomen: Present: distention Incision: Present: dressed - Labs Labs: Abnormal lab results 07/28/18 07/29/18 07/29/18 Range/Units 02:45 09:28 11:57 WBC 16.8 H (4.5-11.0) K/mm3 RBC 2.09 L (3.65-5.03) M/mm3 Hgb 5.8 L* D (10.1-14.3) gm/dl Hct 17.5 L* D (30.3-42.9) % RDW 16.2 H (13.2-15.2) % Plt Count 78 L (140-440) K/mm3 Lymph % (Auto) (13.4-35.0) % [place] % (Auto) (0.0-7.3) % Lymph # (1.2-5.4) K/mm3 [place] # (0.0-0.8) K/mm3 Seg Neutrophils % (40.0-70.0) % Seg Neutrophils # (1.8-7.7) K/mm3 Sodium 136 L (137-145) mmol/L Glucose 111 H (65-100) mg/dL Calcium 6.6 L (8.4-10.2) mg/dL Magnesium 6.20 H (1.7-2.3) mg/dL AST 259 H (5-40) units/L ALT 237 H (7-56) units/L Total Protein 4.9 L (6.3-8.2) g/dL Albumin 3.0 L (3.9-5) g/dL Crossmatch See Detail 07/29/18 07/30/18 07/30/18 Range/Units 13:31 01:22 05:37 WBC 13.9 H 13.0 H (4.5-11.0) K/mm3 RBC 1.94 L 2.32 L (3.65-5.03) M/mm3 Hgb 5.4 L* 6.8 L 6.9 L (10.1-14.3) gm/dl Hct 16.2 L* 20.2 L 20.0 L (30.3-42.9) % RDW 16.2 H 17.3 H (13.2-15.2) % Plt Count 71 L 67 L (140-440) K/mm3 Lymph % (Auto) 7.1 L (13.4-35.0) % [place] % (Auto) 8.5 H (0.0-7.3) % Lymph # 1.0 L (1.2-5.4) K/mm3 [place] # 1.2 H (0.0-0.8) K/mm3 Seg Neutrophils % 84.1 H (40.0-70.0) % Seg Neutrophils # 11.7 H (1.8-7.7) K/mm3 Sodium (137-145) mmol/L Glucose (65-100) mg/dL Calcium (8.4-10.2) mg/dL Magnesium (1.7-2.3) mg/dL AST (5-40) units/L ALT (7-56) units/L Total Protein (6.3-8.2) g/dL Albumin (3.9-5) g/dL Crossmatch
[2018-07-30] MEDS ORDERED: IBUPROFEN PO PRN (08:56)
[2018-07-30] MEDS ORDERED: MILK OF MAGNESIA PO PRN (09:00)
[2018-07-30] MEDS: NORMODYNE PO SCH ×2 (09:59→21:39)
[2018-07-30] MEDS: PEPCID PO SCH (09:59)
[2018-07-30] MEDS: PRENATAL VITAMIN PO SCH (11:22)
--- NOTE | 2018-07-30 12:08 | Cat Scan Report ---
PROCEDURE: CT ABDOMEN PELVIS WO CON TECHNIQUE: Computerized axial tomography of the abdomen was performed without intravenous contrast. This study is performed without intravascular contrast material and its sensitivity for abdominal and pelvic pathology, including neoplasms, inflammation, abscess, free fluid, thrombosis, arterial disse ction and infarction, is reduced compared with a contrast enhanced study. CT DOSE LENGTH PRODUCT: 1656.2 mGycm HISTORY: postoperative bleeding two days ago. COMPARISONS: None . FINDINGS: Visualized lower thorax: Small bilateral pleural effusions. Liver: Normal size and attenuation. Spleen: Normal size and attenuation. Gallbladder and biliary system: Gallstones. No pericholecystic fluid or gallbladder wall thickening. No biliary ductal dilatation. Pancreas: Normal. Adrenals: Normal. Kidneys: No hydronephrosis. 3 mm nonobstructive calcification in the inferior pole of the right kidne y. GI tract: No focal wall thickening. No evidence of obstruction. . Lymph nodes and mesentery: No significantly enlarged lymph nodes.. Vasculature: Normal. Peritoneum: Some free fluid within the pelvis and the right paracolic gutter. Reproductive organs: Enlarged and distended uterus measuring approximately 17 x 12.7 x 13.9 cm. Bladder: Rogers catheter within a decompressed bladder. Musculoskeletal structures: Diastases of the rectus abdominal muscles. Hyperdense 3.8 x 2.3 cm area w ithin the diastases, that may represent blood products. Surgical hilda over the anterior aspect of the pelvis. Scattered foci of subcutaneous air in the anterior soft tissues, that may represent areas of trocar placement. Small hyperdense areas in the prevesical space and the subcutaneous and muscula r anterior pelvic wall, likely inventory representative of small areas of hemorrhage. IMPRESSION: Evaluation is limited due to lack of IV or oral contrast. Enlarged uterus, compatible with post partu m state. Intrauterine hemorrhage is not excluded. Small to moderate amount of free fluid in the pelvis, which is difficult to discern from collapsed sm all bowel loops. Small focal hemorrhages in the prevesical space and subcutaneous muscular anterior pelvic wall, along the area of the patient's , likely postsurgical in nature. Diastases of the rectus abdominis musculature with hyperdense 3.8 x 2.3 cm area within the diastases, also concerning for small hemorrhage. Preliminary findings were discussed with Dr. Fajardo and 11:56 AM, Eastern standard time, on 2018. This document is electronically signed by Mary Mortensen MD., July 30 2018 12:05:46 PM ET
--- NOTE | 2018-07-30 12:58 | Progress Note ---
Assessment and Plan HELLP syndrome with hemolysis, elevated liver enzymes, and low platelets. Preeclampsia at presentation. Acute blood loss anemia. Obesity. Leukocytosis. Elevated LDH, likely related to hemolysis - get BNP +/- 2D ECHO re: cardiomegaly and hypoxemia - get IR to evaluate for active bleeding +/- embolize - repeat H&H if < 7.0 transfuse 2 units (family wants the blood draw first as their steno typist has prayed) - continue supplemental oxygen to keep sat's > 90% - continue incentive spirometry - increase ambulation as tolerated - repeat CT abd/pelvis was non contrast and may did reveal much (i received a call from reading radiologist) - continue GI prophylaxis - continue VTE prophylaxis with SCD's - PT/OT as tolerated - baby allowe to visit mom - gentle hydration - continue other care per attending / other consultants - continue anti-hypertensive therapy - case discussed with attending at length and care plan formulated; watch in ICU for now; she may need surgical intervention if bleeding is persistent ... re-evaluate in am & prn PROGNOSIS : GUARDED CONDITION: CRITICAL CODE STATUS: FULL CODE The high probability of a clinically significant, sudden or life-threatening deterioration of the hematologic & ] system(s) required my full and direct attention, intervention and personal management. The aggregate critical care time was [40] minutes without overlap. Time includes spent on; [x] Data Review and interpretation [x] Patient assessment and monitoring of vital signs [x] Documentation [x] Medication orders and management Subjective Date of service: 07/30/18 Principal diagnosis: HELLP syndrome; Acute blood loss anemia; Obesity; Leukocytosis Interval history: Patient is seen today for: HELLP syndrome with hemolysis, elevated liver enzymes, and low platelets; Preeclampsia at presentation; Acute blood loss anemia; Obesity; Leukocytosis; Elevated LDH, likely related to hemolysis Seen and examined at bedside; 24hour events reviewed; nursing and respiratory care staff consulted; no adverse overnight events reported to me; s/p 2 units PRBC's with sub-optimal rise in H&H suggesting persistent bleeding; denies acute chest pains or palpitations; no N/V/F/C; remains on supplemental oxygen therapy Objective Vital Signs - 12hr 07/30/18 07/30/18 07/30/18 01:00 01:11 01:21 Temperature Pulse Rate 94 H 96 H 97 H Pulse Rate [ From Monitor] Respiratory 16 14 17 Rate Blood Pressure 115/65 115/65 115/65 O2 Sat by Pulse 94 94 94 Oximetry 07/30/18 07/30/18 07/30/18 01:31 01:41 01:50 Temperature Pulse Rate 94 H 92 H 91 H Pulse Rate [ From Monitor] Respiratory 21 16 16 Rate Blood Pressure 115/65 115/65 115/65 O2 Sat by Pulse 95 94 94 Oximetry 07/30/18 07/30/18 07/30/18 02:00 02:10 02:21 Temperature Pulse Rate 88 91 H 98 H Pulse Rate [ From Monitor] Respiratory 14 15 20 Rate Blood Pressure 111/65 111/65 111/65 O2 Sat by Pulse 94 95 93 Oximetry 07/30/18 07/30/18 07/30/18 02:30 02:41 02:51 Temperature Pulse Rate 91 H 89 92 H Pulse Rate [ From Monitor] Respiratory 15 17 14 Rate Blood Pressure 111/65 111/65 111/65 O2 Sat by Pulse 95 95 94 Oximetry 07/30/18 07/30/18 07/30/18 03:07 03:10 03:20 Temperature Pulse Rate 89 91 H 85 Pulse Rate [ From Monitor] Respiratory 16 14 20 Rate Blood Pressure 116/69 O2 Sat by Pulse 95 96 93 Oximetry 07/30/18 07/30/18 07/30/18 03:30 03:40 03:50 Temperature Pulse Rate 83 85 86 Pulse Rate [ From Monitor] Respiratory 13 17 13 Rate Blood Pressure 116/69 116/69 116/69 O2 Sat by Pulse 95 95 95 Oximetry 07/30/18 07/30/18 07/30/18 04:00 04:10 04:20 Temperature 99.2 F Pulse Rate 91 H 93 H 84 Pulse Rate [ From Monitor] Respiratory 21 23 15 Rate Blood Pressure 112/62 112/62 112/62 O2 Sat by Pulse 93 92 95 Oximetry 07/30/18 07/30/18 07/30/18 04:30 04:40 04:50 Temperature Pulse Rate 82 81 83 Pulse Rate [ From Monitor] Respiratory 14 13 11 L Rate Blood Pressure 112/62 112/62 112/62 O2 Sat by Pulse 96 96 95 Oximetry 07/30/18 07/30/18 07/30/18 05:00 05:10 05:20 Temperature Pulse Rate 86 82 82 Pulse Rate [ From Monitor] Respiratory 16 13 13 Rate Blood Pressure 121/61 121/61 121/61 O2 Sat by Pulse 96 97 97 Oximetry 07/30/18 07/30/18 07/30/18 05:30 05:40 05:50 Temperature Pulse Rate 90 93 H 90 Pulse Rate [ From Monitor] Respiratory 17 22 17 Rate Blood Pressure 121/61 121/61 121/61 O2 Sat by Pulse 96 96 Oximetry 07/30/18 07/30/18 07/30/18 06:00 06:10 06:20 Temperature Pulse Rate 95 H 85 83 Pulse Rate [ From Monitor] Respiratory 20 18 16 Rate Blood Pressure 121/61 136/64 136/64 O2 Sat by Pulse 96 97 97 Oximetry 07/30/18 07/30/18 07/30/18 06:30 06:40 06:50 Temperature Pulse Rate 84 86 83 Pulse Rate [ From Monitor] Respiratory 18 16 13 Rate Blood Pressure 136/64 136/64 136/64 O2 Sat by Pulse 98 97 97 Oximetry 07/30/18 07/30/18 07/30/18 07:00 07:10 07:20 Temperature Pulse Rate 92 H 90 92 H Pulse Rate [ From Monitor] Respiratory 22 21 16 Rate Blood Pressure 131/68 131/68 131/68 O2 Sat by Pulse 98 98 97 Oximetry 07/30/18 07/30/18 07/30/18 07:30 07:40 07:48 Temperature 98.7 F Pulse Rate 86 88 Pulse Rate [ From Monitor] Respiratory 19 24 Rate Blood Pressure 131/68 131/68 O2 Sat by Pulse 98 97 Oximetry 07/30/18 07/30/18 07/30/18 07:50 08:00 08:10 Temperature Pulse Rate 85 81 91 H Pulse Rate [ 88 From Monitor] Respiratory 24 26 H 20 Rate Blood Pressure 131/68 131/68 136/67 O2 Sat by Pulse 97 98 89 Oximetry 07/30/18 07/30/18 07/30/18 08:20 08:30 08:40 Temperature Pulse Rate 91 H 89 Pulse Rate [ From Monitor] Respiratory 19 22 Rate Blood Pressure 136/67 136/67 136/67 O2 Sat by Pulse 90 90 89 Oximetry 07/30/18 07/30/18 07/30/18 08:50 09:00 09:10 Temperature Pulse Rate 87 87 86 Pulse Rate [ From Monitor] Respiratory 23 24 17 Rate Blood Pressure 136/67 154/73 154/73 O2 Sat by Pulse 94 96 97 Oximetry 07/30/18 07/30/18 07/30/18 09:20 09:30 09:54 Temperature Pulse Rate 87 85 87 Pulse Rate [ From Monitor] Respiratory 23 16 19 Rate Blood Pressure 154/73 154/73 154/73 O2 Sat by Pulse 98 97 93 Oximetry 07/30/18 07/30/18 07/30/18 09:59 10:00 10:10 Temperature Pulse Rate 89 86 85 Pulse Rate [ From Monitor] Respiratory 15 15 Rate Blood Pressure 154/73 146/74 146/74 O2 Sat by Pulse 95 96 Oximetry 07/30/18 07/30/18 07/30/18 10:20 10:30 10:40 Temperature Pulse Rate 90 83 87 Pulse Rate [ From Monitor] Respiratory 12 15 17 Rate Blood Pressure 146/74 146/74 146/74 O2 Sat by Pulse 93 96 96 Oximetry 07/30/18 07/30/18 07/30/18 10:50 11:00 11:10 Temperature Pulse Rate 93 H 84 88 Pulse Rate [ From Monitor] Respiratory 17 26 H 18 Rate Blood Pressure 146/74 146/74 136/84 O2 Sat by Pulse 91 96 97 Oximetry 07/30/18 07/30/18 07/30/18 11:20 11:30 11:40 Temperature Pulse Rate 83 90 86 Pulse Rate [ From Monitor] Respiratory 20 18 18 Rate Blood Pressure 136/84 136/84 136/84 O2 Sat by Pulse 99 99 99 Oximetry 07/30/18 07/30/18 07/30/18 11:50 11:57 12:00 Temperature 99.4 F Pulse Rate 89 85 Pulse Rate [ From Monitor] Respiratory 20 16 Rate Blood Pressure 136/84 150/78 O2 Sat by Pulse 99 98 Oximetry 07/30/18 07/30/18 07/30/18 12:10 12:20 12:30 Temperature Pulse Rate 86 98 H 89 Pulse Rate [ From Monitor] Respiratory 15 13 14 Rate Blood Pressure 136/84 136/84 136/84 O2 Sat by Pulse 99 95 95 Oximetry 07/30/18 12:40 Temperature Pulse Rate 87 Pulse Rate [ From Monitor] Respiratory 18 Rate Blood Pressure 136/84 O2 Sat by Pulse Oximetry Constitutional: alert, appears uncomfortable, other (middle aged AF normo cephalic and atraumatic but with mildly increased respiratory effort at rest) Eyes: non-icteric ENT: oropharynx moist, other (Mallampati 2) Neck: supple, no lymphadenopathy, no JVD, other (large neck circumference) Effort: mildly labored Ascultation: Bilateral: rhonchi (posterior bases) Percussion: Bilateral: not dull Cardiovascular: regular rate and rhythm, other (No R/M) Gastrointestinal: hypoactive bowel sounds, soft, tender, other (distended) Integumentary: normal Extremities: no cyanosis, pink and warm, pulses normal, no ischemia or petech iae, edema (trace) Neurologic: normal mental status, non-focal exam, pupils equal and round, CN II- XII normal, motor strength normal and Psychiatric: mood appropriate, affect normal CBC and BMP: 07/31/18 11:36 07/31/18 11:36 ABG, PT/INR, D-dimer: PT/INR, D-dimer PT 13.9 Sec. (12.2-14.9) 07/28/18 08:41 INR 1.01 (0.87-1.13) 07/28/18 08:41 Abnormal lab findings: Abnormal Labs 07/28/18 07/28/18 07/28/18 02:45 02:45 02:45 WBC 12.2 H RBC Hgb Hct MCH 27 L RDW 15.9 H Plt Count Lymph % (Auto) [place] % (Auto) Lymph # [place] # Seg Neutrophils % Seg Neutrophils # Sodium Glucose Calcium Magnesium AST 388 H ALT 323 H Lactate Dehydrogenase 756 H Total Protein Albumin Urine WBC (Auto) U Epithel Cells (Auto) Crossmatch See Detail 07/28/18 07/28/18 07/28/18 03:50 11:12 14:18 WBC RBC Hgb Hct MCH RDW Plt Count Lymph % (Auto) [place] % (Auto) Lymph # [place] # Seg Neutrophils % Seg Neutrophils # Sodium Glucose Calcium Magnesium 4.60 H AST 942 H ALT 540 H Lactate Dehydrogenase 1373 H Total Protein Albumin Urine WBC (Auto) 11.0 H U Epithel Cells (Auto) 26.0 H Crossmatch 07/28/18 07/29/18 07/29/18 15:59 09:28 11:57 WBC 16.8 H RBC 2.09 L Hgb 5.8 L* D Hct 30.1 L D 17.5 L* D MCH RDW 15.7 H 16.2 H Plt Count 51 L 78 L Lymph % (Auto) 13.3 L [place] % (Auto) 7.9 H Lymph # [place] # Seg Neutrophils % 78.6 H Seg Neutrophils # 8.0 H Sodium 136 L Glucose 111 H Calcium 6.6 L Magnesium 6.20 H AST 259 H ALT 237 H Lactate Dehydrogenase Total Protein 4.9 L Albumin 3.0 L Urine WBC (Auto) U Epithel Cells (Auto) Crossmatch 07/29/18 07/30/18 07/30/18 13:31 01:22 05:37 WBC 13.9 H 13.0 H RBC 1.94 L 2.32 L Hgb 5.4 L* 6.8 L 6.9 L Hct 16.2 L* 20.2 L 20.0 L MCH RDW 16.2 H 17.3 H Plt Count 71 L 67 L Lymph % (Auto) 7.1 L [place] % (Auto) 8.5 H Lymph # 1.0 L [place] # 1.2 H Seg Neutrophils % 84.1 H Seg Neutrophils # 11.7 H Sodium Glucose Calcium Magnesium AST ALT Lactate Dehydrogenase Total Protein Albumin Urine WBC (Auto) U Epithel Cells (Auto) Crossmatch Chest x-ray: image reviewed (lordotic, borderline cardiomegaly; hypoventilation; possible mild interstitial edema) Allied health notes reviewed: nursing
--- NOTE | 2018-07-30 13:12 | XRay Report ---
AP CHEST: HISTORY: Hypoxemia AP view of the chest demonstrates a normal mediastinal and cardiac contour with clear lungs and normal bony and soft tissue structures. IMPRESSION: Unremarkable AP chest.
[2018-07-30 13:19] LABS: Hematocrit 22.1 % (30.3-42.9); Hemoglobin 7.7 gm/dl (10.1-14.3); Mean Corpuscular HGB Conc 35 % (30-34); Mean Corpuscular Volume 86 fl (79-97); Red Blood Count 2.55 M/mm3 (3.65-5.03); Red Cell Distribution Width 17.5 % (13.2-15.2)
[2018-07-30 13:20] LABS: Platelet Count 85 K/mm3 (140-440)
--- NOTE | 2018-07-30 13:40 | Consultation ---
History of Present Illness - Reason for Consult Consult date: 07/30/18 abdominal bleeding - History of Present Illness Patient with a history of preeclampsia when underwent hysterectomy. Following her surgery, the patient had a decrease in hemoglobin and was transfused. The patient's hemoglobin continues to rise. On examination, the patient is resting comfortably in a chair. Past History Social history: Medications and Allergies Allergies Allergy/AdvReac Type Severity Reaction Status Date / Time No Known Allergies Allergy Unverified 07/28/18 03:01 Home Medications Medication Instructions Recorded Confirmed Last Taken Type No Known Home Medications [No 07/30/18 07/30/18 Unknown History Reported Home Medications] Active Meds: Active Medications Acetaminophen (Tylenol) 650 mg PO Q6H PRN PRN Reason: Pain, Mild (1-3) Last Admin: 07/28/18 04:14 Dose: 650 mg Documented by: Famotidine (Pepcid) 20 mg PO DAILY [facility] Last Admin: 07/30/18 09:59 Dose: 20 mg Documented by: Hydralazine HCl (Apresoline) 5 mg IV Q30MIN PRN PRN Reason: Blood Pressure Hydromorphone HCl (Dilaudid) 0.5 mg IV Q3H PRN PRN Reason: Pain , Severe (7-10) Dextrose/Lactated Ringer's (D5lr) 1,000 mls @ 125 mls/hr IV DIRECT [facility] Last Infusion: 07/29/18 13:20 Dose: 75 mls/hr Documented by: Ibuprofen (Motrin) 800 mg PO Q8H PRN PRN Reason: Pain, Mild (1-3) Labetalol HCl (Normodyne) 200 mg PO BID [facility] Last Admin: 07/30/18 09:59 Dose: 200 mg Documented by: Magnesium Hydroxide (Milk Of Magnesia) 30 ml PO QDAY PRN PRN Reason: Constipation Multi-Ingredient Ointment (Lansinoh) 1 applic TP PRN PRN PRN Reason: dryness/cracking Multivitamins/Iron/Calcium ( Vitamin) 1 each PO QDAY [facility] Last Admin: 07/30/18 11:22 Dose: 1 each Documented by: Naloxone HCl (Narcan 0.4 Mg/1 Ml) 0.1 mg IV Q2MIN PRN PRN Reason: Res Rate </= 8 or 02 SAT < 92% Ondansetron HCl (Zofran) 4 mg IV Q8H PRN PRN Reason: N/V unrelieved by Reglan Oxycodone/Acetaminophen (Percocet 5/325) 2 tab PO Q4H PRN PRN Reason: Pain, Moderate (4-6) Last Admin: 07/29/18 20:23 Dose: 2 tab Documented by: Phenol (Chloraseptic) 1 spray MM PRN PRN PRN Reason: Sore Throat Last Admin: 07/30/18 00:48 Dose: 1 spray Documented by: Jack [place]/Glycerin (Tucks Pad) 1 each TP PRN PRN PRN Reason: Hemorrhoids/cleansing/soothing Exam - Constitutional Vitals: Temp Pulse Resp BP Pulse Ox 99.4 F 87 20 140/83 95 07/30/18 11:57 07/30/18 13:30 07/30/18 13:30 07/30/18 13:30 07/30/18 13:30 General appearance: Present: no acute distress - EENT Eyes: Present: EOM intact ENT: hearing intact - Neck Neck: Present: supple, normal ROM - Respiratory Respiratory effort: normal - Cardiovascular Rhythm: regular - Extremities Extremities: no ischemia - Abdominal General gastrointestinal: Present: soft Female genitourinary: Present: deferred - Rectal Rectal Exam: deferred - Psychiatric Psychiatric: appropriate mood/affect, cooperative Results - Labs CBC & Chem 7: 07/30/18 13:13 07/29/18 11:57 Labs: Abnormal lab results 07/28/18 07/29/18 07/30/18 Range/Units 02:45 13:31 01:22 WBC 13.9 H 13.0 H (4.5-11.0) K/mm3 RBC 1.94 L 2.32 L (3.65-5.03) M/mm3 Hgb 5.4 L* 6.8 L (10.1-14.3) gm/dl Hct 16.2 L* 20.2 L (30.3-42.9) % MCHC (30-34) % RDW 16.2 H 17.3 H (13.2-15.2) % Plt Count 71 L 67 L (140-440) K/mm3 Lymph % (Auto) 7.1 L (13.4-35.0) % [place] % (Auto) 8.5 H (0.0-7.3) % Lymph # 1.0 L (1.2-5.4) K/mm3 [place] # 1.2 H (0.0-0.8) K/mm3 Seg Neutrophils % 84.1 H (40.0-70.0) % Seg Neutrophils # 11.7 H (1.8-7.7) K/mm3 Crossmatch See Detail 07/30/18 07/30/18 Range/Units 05:37 13:13 WBC 13.7 H (4.5-11.0) K/mm3 RBC 2.55 L (3.65-5.03) M/mm3 Hgb 6.9 L 7.7 L (10.1-14.3) gm/dl Hct 20.0 L 22.1 L (30.3-42.9) % MCHC 35 H (30-34) % RDW 17.5 H (13.2-15.2) % Plt Count 85 L (140-440) K/mm3 Lymph % (Auto) (13.4-35.0) % [place] % (Auto) (0.0-7.3) % Lymph # (1.2-5.4) K/mm3 [place] # (0.0-0.8) K/mm3 Seg Neutrophils % (40.0-70.0) % Seg Neutrophils # (1.8-7.7) K/mm3 Crossmatch Assessment and Plan Patient continues to improve clinically. If there is a change in the patient's condition, a contrasted CT of the abdomen should be performed to determine if there is intra-abdominal bleeding.
[2018-07-30 13:48] LABS: Alanine Aminotransferase 182 units/L (7-56); Albumin 2.8 g/dL (3.9-5); BUN/Creatinine Ratio 9; Blood Urea Nitrogen 8 mg/dL (7-17); Calcium 6.8 mg/dL (8.4-10.2); Hemolysis Index 0
--- NOTE | 2018-07-30 16:32 | Event Note ---
Date: 07/30/[address] scan with patient and family. No significant fluid collection noted. Hemodynamic status has remained stable and patient is experiencing diuresis. Will arrange for transfer to [facility].
[2018-07-30] MEDS: PERCOCET 5/325 PO PRN (21:32)
[2018-07-31] MEDS: PERCOCET 5/325 PO PRN ×5 (01:59→21:49)
[2018-07-31] MEDS ORDERED: BENADRYL PO PRN (04:58)
[2018-07-31] MEDS: TYLENOL PO PRN (10:26)
[2018-07-31] MEDS: PEPCID PO SCH (10:46)
[2018-07-31] MEDS: NORMODYNE PO SCH ×3 (10:46→21:48)
[2018-07-31] MEDS: PRENATAL VITAMIN PO SCH (10:46)
--- NOTE | 2018-07-31 11:14 | Progress Note ---
Assessment and Plan A: POD#3 s/p primary section at 36 wks secondary to HELLP Syndrome; on labetalol 200 mg BID; s/p mag sulfate x 24 hrs Severe anemia with transfusion of 4 u PPRBCs, 2 u FFP and 2 u of platelets Obesity P: Continue observation Recheck CBC, CMP now Encourage ambulation and bowel regimen Subjective - Subjective Date of service: 07/31/18 Principal diagnosis: s/p section, HELLP syndrome, acute blood loss anemia, obesity Interval history: Patient reports feeling well today and is hopeful that she'll be able to go home in the coming days. She reports very little vaginal bleeding. She reports intermittent abdominal pain that is tolerable. She denies headache, blurry vision, scotomata, or right upper quadrant pain Patient reports: voiding normally, pain well controlled, flatus (minimal ), ambulating normally, no nauseated Objective - Vital Signs Latest vital signs: Vital Signs Temp Pulse Pulse Resp BP BP Pulse Ox 07/31/18 10:47 81 150/81 07/31/18 10:46 81 150/81 07/31/18 10:45 16 07/31/18 10:26 16 07/31/18 08:55 98.2 F 81 20 150/81 07/31/18 04:31 97.8 F 68 18 114/58 97 07/31/18 01:03 98.5 F 79 20 144/68 91 07/30/18 21:40 99.1 F 92 H 16 152/72 96 07/30/18 21:39 92 H 152/72 07/30/18 18:45 99.1 F 84 20 158/72 92 07/30/18 18:10 82 21 169/84 96 07/30/18 18:00 80 15 169/84 94 07/30/18 17:58 76 169/84 07/30/18 17:50 80 15 169/84 95 07/30/18 17:40 80 16 169/84 97 07/30/18 17:30 83 14 169/84 97 07/30/18 17:20 78 15 169/84 96 07/30/18 17:10 83 19 169/84 94 07/30/18 17:00 90 30 H 139/68 07/30/18 16:50 85 22 139/68 94 07/30/18 16:40 85 19 139/68 95 07/30/18 16:30 83 19 139/68 95 07/30/18 16:20 86 15 139/68 97 07/30/18 16:10 80 14 139/68 97 07/30/18 16:00 99.7 F H 84 85 17 139/68 97 07/30/18 15:50 81 17 141/72 97 07/30/18 15:40 86 19 141/72 95 07/30/18 15:30 86 14 141/72 98 07/30/18 15:20 88 22 141/72 97 07/30/18 15:10 83 18 141/72 98 07/30/18 15:00 78 18 141/72 97 07/30/18 14:50 82 187/87 94 07/30/18 14:40 85 22 187/87 95 07/30/18 14:30 92 H 19 187/87 97 07/30/18 14:20 86 14 187/87 95 07/30/18 14:10 85 16 187/87 96 07/30/18 14:00 87 19 140/83 96 07/30/18 13:50 89 18 140/83 96 07/30/18 13:40 84 18 140/83 96 07/30/18 13:30 87 20 140/83 95 07/30/18 13:20 86 21 140/83 95 07/30/18 13:10 92 H 20 140/83 95 07/30/18 13:00 92 H 20 140/83 96 07/30/18 12:50 94 H 16 136/84 07/30/18 12:40 87 18 136/84 07/30/18 12:30 89 14 136/84 95 07/30/18 12:20 98 H 13 136/84 95 07/30/18 12:10 86 15 136/84 99 07/30/18 12:00 90 90 19 150/78 96 07/30/18 11:57 99.4 F 07/30/18 11:50 89 20 136/84 99 07/30/18 11:40 86 18 136/84 99 07/30/18 11:30 90 18 136/84 99 07/30/18 11:20 83 20 136/84 99 Intake and Output 07/30/18 07/31/18 07/31/18 22:59 06:59 14:59 Intake Total 240 120 Output Total 3100 100 400 Balance -3100 140 -280 Intake: Oral 120 Intake, Free Water 240 Output: Urine 3100 100 400 Indwelling Catheter 3100 Void 100 400 Other: Total, Intake Amount 120 Total, Output Amount 700 100 400 Voiding Method Indwelling Catheter # Voids Void 1 - Exam Breasts: Present: deferred Cardiovascular: Present: Regular rate Lungs: Present: Clear to auscultation Abdomen: Present: soft (obese), distention (moderate ), abnormal bowel sounds (hypoactive ) Uterus: Present: fundal height below umbilicus Extremities: Present: edema (trace ) Incision: Present: intact (with hilda ) - Labs Labs: Abnormal lab results 07/30/18 07/30/18 Range/Units 13:13 13:13 WBC 13.7 H (4.5-11.0) K/mm3 RBC 2.55 L (3.65-5.03) M/mm3 Hgb 7.7 L (10.1-14.3) gm/dl Hct 22.1 L (30.3-42.9) % MCHC 35 H (30-34) % RDW 17.5 H (13.2-15.2) % Plt Count 85 L (140-440) K/mm3 Sodium 136 L (137-145) mmol/L Calcium 6.8 L (8.4-10.2) mg/dL AST 131 H (5-40) units/L ALT 182 H (7-56) units/L Total Protein 5.6 L (6.3-8.2) g/dL Albumin 2.8 L (3.9-5) g/dL
[2018-07-31 11:52] LABS: Hematocrit 21.9 % (30.3-42.9); Hemoglobin 7.4 gm/dl (10.1-14.3); Mean Corpuscular HGB Conc 34 % (30-34); Mean Corpuscular Volume 88 fl (79-97); Platelet Count 108 K/mm3 (140-440); Red Cell Distribution Width 17.4 % (13.2-15.2)
[2018-07-31 12:10] LABS: Alanine Aminotransferase 148 units/L (7-56); BUN/Creatinine Ratio 14; Blood Urea Nitrogen 11 mg/dL (7-17); Calcium 7.9 mg/dL (8.4-10.2); Hemolysis Index 0
[2018-07-31] MEDS: MILK OF MAGNESIA PO SCH (13:02)
--- NOTE | 2018-07-31 13:32 | Progress Note ---
Assessment and Plan Patient awake. No complaint of chest pain or shortness of breath or cough.Patient is on room air. No acute respiratory distress. - Patient Problems (1) HELLP syndrome Current Visit: Yes Status: Acute Plan to address problem: Liverenzymes, Platelets, Anemia improving. Blood pressure still some what high 155/83. Peripheral edema improved. Subjective Date of service: 07/31/18 Principal diagnosis: s/p section, HELLP syndrome, acute blood loss anemia, obesity Interval history: Patient awake. No complaint of chest pain or shortness of breath or cough.Patient is on room air. No acute respiratory distress. Objective Vital Signs - 12hr 07/31/18 07/31/18 07/31/18 04:31 08:55 10:26 Temperature 97.8 F 98.2 F Pulse Rate 68 81 Respiratory 18 20 16 Rate Blood Pressure 114/58 Blood Pressure 150/81 [Right] O2 Sat by Pulse 97 Oximetry 07/31/18 07/31/18 07/31/18 10:45 10:46 10:47 Temperature Pulse Rate 81 81 Respiratory 16 Rate Blood Pressure 150/81 150/81 Blood Pressure [Right] O2 Sat by Pulse Oximetry Constitutional: no acute distress, alert Eyes: non-icteric ENT: oropharynx moist, other (Mallampati 2) Neck: supple, no lymphadenopathy, no JVD, other (large neck circumference) Effort: mildly labored Ascultation: Bilateral: clear Percussion: Bilateral: not dull Cardiovascular: regular rate and rhythm, other (No R/M) Gastrointestinal: hypoactive bowel sounds, soft, tender, other (distended) Integumentary: normal Extremities: no cyanosis, pink and warm, pulses normal, no ischemia or petechiae, edema (trace) Neurologic: normal mental status, non-focal exam, pupils equal and round, CN II- XII normal, motor strength normal and Psychiatric: mood appropriate, affect normal CBC and BMP: 07/31/18 11:36 07/31/18 11:36 ABG, PT/INR, D-dimer: PT/INR, D-dimer PT 13.9 Sec. (12.2-14.9) 07/28/18 08:41 INR 1.01 (0.87-1.13) 07/28/18 08:41 Abnormal lab findings: Abnormal Labs 04/07/28/18 07/28/18 02:45 02:45 02:45 WBC 12.2 H RBC Hgb Hct MCH 27 L MCHC RDW 15.9 H Plt Count Lymph % (Auto) [place] % (Auto) Lymph # [place] # Seg Neutrophils % Seg Neutrophils # Sodium Glucose Calcium Magnesium AST 388 H ALT 323 H Lactate Dehydrogenase 756 H Total Protein Albumin Urine WBC (Auto) U Epithel Cells (Auto) Crossmatch See Detail 07/28/18 07/28/18 07/28/18 03:50 11:12 14:18 WBC RBC Hgb Hct MCH MCHC RDW Plt Count Lymph % (Auto) [place] % (Auto) Lymph # [place] # Seg Neutrophils % Seg Neutrophils # Sodium Glucose Calcium Magnesium 4.60 H AST 942 H ALT 540 H Lactate Dehydrogenase 1373 H Total Protein Albumin Urine WBC (Auto) 11.0 H U Epithel Cells (Auto) 26.0 H Crossmatch 07/28/18 07/29/18 07/29/18 15:59 09:28 11:57 WBC 16.8 H RBC 2.09 L Hgb 5.8 L* D Hct 30.1 L D 17.5 L* D MCH MCHC RDW 15.7 H 16.2 H Plt Count 51 L 78 L Lymph % (Auto) 13.3 L [place] % (Auto) 7.9 H Lymph # [place] # Seg Neutrophils % 78.6 H Seg Neutrophils # 8.0 H Sodium 136 L Glucose 111 H Calcium 6.6 L Magnesium 6.20 H AST 259 H ALT 237 H Lactate Dehydrogenase Total Protein 4.9 L Albumin 3.0 L Urine WBC (Auto) U Epithel Cells (Auto) Crossmatch 07/29/18 07/30/18 07/30/18 13:31 01:22 05:37 WBC 13.9 H 13.0 H RBC 1.94 L 2.32 L Hgb 5.4 L* 6.8 L 6.9 L Hct 16.2 L* 20.2 L 20.0 L MCH MCHC RDW 16.2 H 17.3 H Plt Count 71 L 67 L Lymph % (Auto) 7.1 L [place] % (Auto) 8.5 H Lymph # 1.0 L [place] # 1.2 H Seg Neutrophils % 84.1 H Seg Neutrophils # 11.7 H Sodium Glucose Calcium Magnesium AST ALT Lactate Dehydrogenase Total Protein Albumin Urine WBC (Auto) U Epithel Cells (Auto) Crossmatch 07/30/18 07/30/18 07/31/18 13:13 13:13 11:36 WBC 13.7 H 12.8 H RBC 2.55 L 2.50 L Hgb 7.7 L 7.4 L Hct 22.1 L 21.9 L MCH MCHC 35 H RDW 17.5 H 17.4 H Plt Count 85 L 108 L Lymph % (Auto) [place] % (Auto) Lymph # [place] # Seg Neutrophils % Seg Neutrophils # Sodium 136 L Glucose Calcium 6.8 L Magnesium AST 131 H ALT 182 H Lactate Dehydrogenase Total Protein 5.6 L Albumin 2.8 L Urine WBC (Auto) U Epithel Cells (Auto) Crossmatch 07/31/18 11:36 WBC RBC Hgb Hct MCH MCHC RDW Plt Count Lymph % (Auto) [place] % (Auto) Lymph # [place] # Seg Neutrophils % Seg Neutrophils # Sodium 135 L Glucose Calcium 7.9 L D Magnesium AST 94 H ALT 148 H Lactate Dehydrogenase Total Protein 5.7 L Albumin 3.0 L Urine WBC (Auto) U Epithel Cells (Auto) Crossmatch Chest x-ray: report reviewed (Unremarkable AP chest.), image reviewed Allied health notes reviewed: nursing
[2018-08-01] MEDS: MILK OF MAGNESIA PO SCH ×3 (00:19→14:11)
[2018-08-01] MEDS: PERCOCET 5/325 PO PRN ×2 (01:03→04:58)
--- NOTE | 2018-08-01 07:54 | Progress Note ---
Assessment and Plan A: POD#4 s/p primary section at 36 wks secondary to HELLP Syndrome; on labetalol 200 mg BID; s/p mag sulfate x 24 hrs Severe anemia with transfusion of 4 u PPRBCs, 2 u FFP and 2 u of platelets Obesity P: Plan to discharge pt today with follow up in 4-5 days in office for BP check and incision check with staple removal Continue to hold NSAIDs Subjective - Subjective Date of service: 08/01/18 Principal diagnosis: s/p section, HELLP syndrome, acute blood loss anemia, obesity Interval history: Patient had a bowel movement overnight and is asking to go home to be with her children. She continues to deny PIH symptoms and her labs are improving. Patient reports: appetite normal, voiding normally, pain well controlled, flatus, bowel movement, ambulating normally, no nauseated Surprise: doing well Objective - Vital Signs Latest vital signs: Vital Signs Temp Pulse Resp BP BP Pulse Ox 08/01/18 01:21 98.3 F 84 20 148/69 96 08/01/18 00:00 99.0 F 83 16 152/81 96 07/31/18 21:48 79 170/87 07/31/18 21:40 79 16 170/87 96 07/31/18 16:55 98.1 F 88 20 155/83 07/31/18 15:52 14 07/31/18 10:47 81 150/81 07/31/18 10:46 81 150/81 07/31/18 10:45 16 07/31/18 10:26 16 07/31/18 08:55 98.2 F 81 20 150/81 Intake and Output 07/31/18 08/01/18 08/01/18 22:59 06:59 14:59 Other: # Bowel Movements 1 - Exam Breasts: Present: deferred Cardiovascular: Present: Regular rate Lungs: Present: Clear to auscultation Abdomen: Present: soft (obese ), normal bowel sounds Uterus: Present: fundal height at umbilicus Extremities: Present: edema (trace ) Incision: Present: intact (with hilda ) - Labs Labs: Abnormal lab results 07/31/18 07/31/18 Range/Units 11:36 11:36 WBC 12.8 H (4.5-11.0) K/mm3 RBC 2.50 L (3.65-5.03) M/mm3 Hgb 7.4 L (10.1-14.3) gm/dl Hct 21.9 L (30.3-42.9) % RDW 17.4 H (13.2-15.2) % Plt Count 108 L (140-440) K/mm3 Sodium 135 L (137-145) mmol/L Calcium 7.9 L D (8.4-10.2) mg/dL AST 94 H (5-40) units/L ALT 148 H (7-56) units/L Total Protein 5.7 L (6.3-8.2) g/dL Albumin 3.0 L (3.9-5) g/dL
--- NOTE | 2018-08-01 08:01 | Discharge Summary ---
Providers - Providers Date of Admission: 07/28/18 03:56 Date of discharge: 08/01/18 Attending physician: JACQUELIN GARCIA MD 07/29/18 11:17 Consult to Physician [CONS] Routine Comment: Consulting Provider: CHICO JACOBS Physician Instructions: Reason For Exam: critical care managment 07/30/18 11:44 Consult to Interventional Radiology [CONS] Urgent Consulting Provider: CINDI KURTZ Reason For Exam: Acute Blood Loss Anemia; ? Occult bleeding Notified:: y Was contact made?: Yes If yes, spoke with:: Dr. Gibson Primary care physician: JACQUELIN GARCIA MD Hospitalization Reason for admission: other (HELLP syndrome ) Delivery: Procedure: section, primary low transverse Procedure details: Please see operative report Incision: intact Other procedures: none complications: none Discharge diagnosis: delivery baby: female Hospital course: The patient was admitted with HELLP syndrome at 36 weeks and underwent an urgent primary section. She was subsequently observed in the ICU secondary to thrombocytopenia and severe anemia. She was then observed on the mother-baby unit until postoperative day #4 when she met discharge criteria. Her liver function tests as well as her platelet count has been improving daily. She will follow up in the office in 4-5 days for blood pressure check as well as incision check. NSAIDs will be held. Condition at discharge: Stable Disposition: DC-01 TO HOME OR SELFCARE - Discharge Diagnoses (1) Obesity Status: Acute Qualifiers: Obesity type: unspecified obesity type Body mass index: BMI 39.0-39.9 (2) delivery Status: Acute (3) Anemia Status: Acute Qualifiers: Anemia type: other cause (4) Thrombocytopenia Status: Acute (5) HELLP syndrome Status: Acute Plan - Discharge Medications Prescriptions: Docusate Sodium [Colace] 100 mg PO BID PRN #60 capsule PRN Reason: Constipation Ferrous Sulfate [Feosol 325 MG tab] 325 mg PO TID #90 tablet Labetalol HCl 300 mg PO BID #60 tablet oxyCODONE /ACETAMINOPHEN [Percocet 5/325] 1 tab PO Q6HR PRN #40 tablet PRN Reason: Pain - Provider Discharge Summary Activity: routine, no sex for 6 weeks, no heavy lifting 4 weeks, no strenuous exercise Diet: routine Instructions: routine Additional instructions: [] Smoking cessation referral if applicable(refer to patient education folder for contact #) [] Refer to [facility]'s [facility] Booklet Call your doctor immediately for: * Fever > 100.5 * Heavy vaginal bleeding ( >1 pad per hour) * Severe persistent headache * Shortness of breath * Reddened, hot, painful area to leg or breast * Drainage or odor from incision. * Keep incision clean and dry at all times and follow doctor's instructions regarding bathing/showering - Follow up plan Follow up: JACQUELIN GARCIA MD [Primary Care Provider] - 08/05/18 (blood pressure check, incision check, staple removal )
[2018-08-01 13:46] VITALS: BP 141/55
[2018-08-01] MEDS: PRENATAL VITAMIN PO SCH (14:11)
[2018-08-01] MEDS: NORMODYNE PO SCH (14:13)
[2018-08-01] MEDS: PEPCID PO SCH (14:13)
== END 2018-08-01 14:43 | disposition home or self-care (01) | DRG 765 ==
LOC: EDBD 01:48 → TRG 01:48 → OBSVTOIN 03:56 → LD 03:56 → CC1 21:47 → OB 07-30 18:45
PROVIDERS: ADMIT Obstetrics & Gynecology; ATTEND Obstetrics & Gynecology
PROC: 10D00Z1 Extraction of Products of Conception, Low, Open Approach (ICD-10-PCS; principal; 2018-07-28)
PROC: 30233L1 Transfusion of Nonautologous Fresh Plasma into Peripheral Vein, Percutaneous Approach (ICD-10-PCS; 2018-07-28)
PROC: 30233N1 Transfusion of Nonautologous Red Blood Cells into Peripheral Vein, Percutaneous Approach (ICD-10-PCS; 2018-07-28)
PROC: 30233R1 Transfusion of Nonautologous Platelets into Peripheral Vein, Percutaneous Approach (ICD-10-PCS; 2018-07-28)
PROC: 30233K1 Transfusion of Nonautologous Frozen Plasma into Peripheral Vein, Percutaneous Approach (ICD-10-PCS; 2018-07-28)
DX: O60.14X0 Preterm labor third trimester with preterm delivery third trimester, not applicable or unspecified (principal); O14.24 HELLP syndrome, complicating childbirth; O14.94 Unspecified pre-eclampsia, complicating childbirth; O99.12 Other diseases of the blood and blood-forming organs and certain disorders involving the immune mechanism complicating childbirth; D62 Acute posthemorrhagic anemia; O34.13 Maternal care for benign tumor of corpus uteri, third trimester; D25.9 Leiomyoma of uterus, unspecified; O99.214 Obesity complicating childbirth; E66.9 Obesity, unspecified; D69.6 Thrombocytopenia, unspecified; O99.02 Anemia complicating childbirth; Z3A.36 36 weeks gestation of pregnancy; Z37.0 Single live birth
CPT/HCPCS: 36415; 71045; 74176; 80053; 81001; 82565; 83615; 83735; 83880; 84450; 84460; 84550; 85014; 85018; 85025; 85027; 85384; 85610; 85730; 86592; 86850; 86900; 86901; 86920; 88307; G0378; A6250; C9250; J0330; J0360; J0690; J1100; J1170; J2370; J2405; J2590; J2704; J2710; J2765; J3010; J3475; J7030; J7040; J7050; J7120; J7121; P9016; P9017; P9035

== ENCOUNTER 2020-09-02 08:14 | Observation (INO) | payer MEDICAID, OTHER ==
--- NOTE | 2020-09-02 08:41 | Event Note ---
ED Screening Note Date of service: 09/02/20 Time: 08:40 ED Screening Note: 44-year-old -[place] female patient presents with complaints of diffuse abdominal pain for the past 2 days She states it feels like something is moving in her abdomen Tenderness to palpation noted to the right lower quadrant on exam only Pain radiates to her back She rates her pain as a 7/10 in severity No fever/chills/sweats or vomiting/diarrhea per patient Abdominal surgical history includes history of This initial assessment/diagnostic orders/clinical plan/treatment(s) is/are subject to change based on patients health status, clinical progression and re- assessment by fellow clinical providers in the ED. Further treatment and workup at subsequent clinical providers discretion. Patient/guardian urged not to elope from the ED as their condition may be serious if not clinically assessed and managed. Initial orders include: Labs CT?
[2020-09-02 09:25] LABS: Basophils # (Auto) 0.1 K/mm3 (0.0-0.1); Basophils % (Auto) 0.8 % (0.0-1.8); Eosinophils # (Auto) 0.2 K/mm3 (0.0-0.4); Eosinophils % (Auto) 2.5 % (0.0-4.3); Hematocrit 32.4 % (30.3-42.9); Hemoglobin 10.9 gm/dl (10.1-14.3); Lymphocytes # (Auto) 2.3 K/mm3 (1.2-5.4); Lymphocytes % (Auto) 31.5 % (13.4-35.0); Mean Corpuscular HGB Conc 34 % (30-34); Mean Corpuscular Volume 79 fl (79-97); Monocytes # (Auto) 0.8 K/mm3 (0.0-0.8); Monocytes % (Auto) 10.5 % (0.0-7.3); Platelet Count 253 K/mm3 (140-440); Red Blood Count 4.11 M/mm3 (3.65-5.03)
[2020-09-02 10:10] LABS: Alanine Aminotransferase 18 units/L (7-56); Albumin 3.8 g/dL (3.9-5); Blood Urea Nitrogen 14 mg/dL (7-17); Calcium 8.6 mg/dL (8.4-10.2); Hemolysis Index 5
[2020-09-02 10:11] LABS: BUN/Creatinine Ratio 20
[2020-09-02 10:14] LABS: Bacteria,Urine 1+ /HPF (Negative); Bilirubin,Urine NEG (Negative); Blood,Urine NEG (Negative); Color,Urine Yellow (Yellow); Mucus,Urine FEW /HPF; Protein,Urine <15 mg/dL mg/dL (Negative); Urobilinogen,Urine < 2.0 mg/dL (<2.0); WBC,Urine < 1.0 /HPF (0.0-6.0)
--- NOTE | 2020-09-02 14:21 | Cat Scan Report ---
CT abdomen pelvis with contrast INDICATION / CLINICAL INFORMATION: abdominal pain, worse in RLQ. TECHNIQUE: Axial CT imaging of abdomen and pelvis was obtained with IV contrast. Coronal and sagittal reformatte d imaging obtained and reviewed. All CT scans at this location are performed using CT dose reduction for ALARA by means of automated exposure control. COMPARISON: Prior CT abdomen from 07/30/2018 was nable to be retrieved from the archive for comparison. FINDINGS: Please note that although IV contrast was injected. There is no IV contrast seen within the abdomen o r pelvis. Therefore, the CT scan is essentially a noncontrast exam. CT abdomen shows no obvious abnormality related to the liver, spleen, pancreas, kidneys, or adrenal g lands. The gallbladder is mildly distended and there is a large gallstone noted within the gallbladde r measuring 4 cm. No obvious gallbladder wall thickening or pericholecystic fluid is noted. CT pelvis demonstrates mildly enlarged uterus containing IUD. Positioning of the IUD is unremarkable. No pelvic mass, free fluid, or focal inflammatory changes noted. There is prominent diastases of the abdominal wall musculature but no evidence of abdominal wall hernia. Mild to moderate amount of stoo l is seen throughout the colon. A normal appendix is present in the right lower quadrant. GI tract is unremarkable. Source of the pat ient's right lower quadrant pain is not identified. Visualized lung bases are clear. Visualized osseous structures are grossly unremarkable. IMPRESSION: 1. No acute finding within the abdomen and pelvis. Specifically, the appendix is unremarkable. 2. 4 cm gallstone is present within the gallbladder. Please correlate clinically as to whether this c ould be causing the patient's right-sided abdominal pain. No CT evidence for acute cholecystitis at t his time. 3. Please note that although IV contrast was injected, there was no IV contrast noted within the abdo men or pelvis. public health technologist was informed of this finding. He examined the patient with found evide nce for extravasation of contrast within the patient's arm. She was counseled about how to treat the extravasation and told to return to the emergency room if symptoms in her arm get worse. Signer Name: Thais Smith MD Signed: 09/02/2020 2:17 PM Workstation Name: [id number]
--- NOTE | 2020-09-02 16:52 | Ultrasound Report ---
ULTRASOUND ABDOMEN, LIMITED (RIGHT UPPER QUADRANT) INDICATION: pain, gallstone. COMPARISON: None available. FINDINGS: Pancreas: Visualized portion shows no significant abnormality. Liver: Increased echogenicity within the liver. Gallbladder: Gallbladder wall thickening with sludge and calculi. Mild edema of the gallbladder wall is a concern Bile ducts: Normal. Common Bile Duct measures 5.7 mm. Free fluid: None. Additional Findings: None. IMPRESSION: 1. Cholelithiasis with gallbladder wall thickening, acute cholecystitis should be considered 2. Hepatic steatosis Signer Name: Pola Reyes MD Signed: 09/02/2020 4:47 PM Workstation Name: [id number]
[2020-09-02] MEDS ORDERED: PIPERACIL/TAZOBACTA 4.5/NS 100 4.5 GM/100 ML VIAL IV ONE (17:36)
[2020-09-02] MEDS ORDERED: SODIUM CHLORIDE 0.9% 1000 ML 1,000 ML IV ONE (17:36)
--- NOTE | 2020-09-02 17:36 | Emergency Department Report ---
HPI - General Chief Complaint: Abdominal Pain Time Seen by Provider: 09/02/20 08:30 - HPI HPI: This is a 44-year-old female presents to the emergency department with complaint of a 2-day history of abdominal pain with radiation to the back. She denies any fever, nausea, vomiting, diarrhea, chest pain, shortness of breath. She denies any past medical history. She has taken some Tylenol for her symptoms with transient relief. No recent travel or sick contacts at home. Currently her abdominal pain is 6 out of 10 in intensity. No known aggravating or alleviating factors. ED Past Medical Hx - Past Medical History Previous Medical History?: No Hx Hypertension: No Hx Diabetes: No Hx Deep Vein Thrombosis: No Hx Renal Disease: No Hx Sickle Cell Disease: No Hx Seizures: No Hx Asthma: No Hx HIV: No - Social History Smoking Status: Never Smoker Substance Use Type: None - Medications Home Medications: Home Medications Medication Instructions Recorded Confirmed Last Taken Type Docusate Sodium [Colace] 100 mg PO BID PRN #60 capsule 08/01/18 Unknown Rx Ferrous Sulfate [Feosol 325 MG tab] 325 mg PO TID #90 tablet 08/01/18 Unknown Rx Labetalol HCl [Labetalol 300mg TAB] 300 mg PO BID #60 tablet 08/01/18 Unknown Rx oxyCODONE /ACETAMINOPHEN [Percocet 1 tab PO Q6HR PRN #40 tablet 08/01/18 Unknown Rx 5/325] ED Review of Systems ROS: Stated complaint: STOMACH PAIN Other details as noted in HPI Comment: All other systems reviewed and negative Constitutional: denies: fever Eyes: denies: eye pain, vision change ENT: denies: ear pain, throat pain Respiratory: denies: cough, shortness of breath Cardiovascular: denies: chest pain, palpitations Gastrointestinal: abdominal pain. denies: nausea, vomiting, diarrhea Genitourinary: denies: dysuria, discharge Musculoskeletal: back pain. denies: arthralgia Skin: denies: rash, lesions Neurological: denies: headache, weakness Physical Exam - Physical Exam Vital Signs: Vital Signs 09/02/20 08:18 Temperature 97.8 F Pulse Rate 75 Respiratory 20 Rate Blood Pressure 146/80 O2 Sat by Pulse 99 Oximetry Physical Exam: GENERAL: The patient is well-developed well-nourished. HENT: Normocephalic. Atraumatic. Patient has moist mucous membranes. EYES: Extraocular motions are intact. NECK: Supple. Trachea is midline. CHEST/LUNGS: Clear to auscultation. There is no respiratory distress noted. HEART/CARDIOVASCULAR: Regular. There is no tachycardia. There is no murmur. ABDOMEN: Abdomen is soft. There is right upper quadrant and right lower quadrant abdominal tenderness to palpation. No guarding. Patient has normal bowel sounds. SKIN: Skin is warm and dry. NEURO: The patient is awake, alert, and oriented. The patient is cooperative. The patient has no focal neurologic deficits. Normal speech. MUSCULOSKELETAL: There is no tenderness or deformity. There is no limitation range of motion. ED Course Vital Signs 09/02/20 08:18 Temperature 97.8 F Pulse Rate 75 Respiratory 20 Rate Blood Pressure 146/80 O2 Sat by Pulse 99 Oximetry - Consultations Consultation #1: 09/02/20 18:40 I attempted to speak with the general surgeon on-call, Dr. Milligan. She was in surgery so I explained to the OR nurse about the patient's presentation, diagnosis, and plan for admission to the hospitalist service with a surgical consult. ED Medical Decision Making - Lab Data Result diagrams: 09/02/20 08:50 09/02/20 08:50 Lab Results 09/02/20 09/02/20 09/02/20 Range/Units 08:50 08:50 08:50 WBC 7.4 (4.5-11.0) K/mm3 RBC 4.11 (3.65-5.03) M/mm3 Hgb 10.9 (10.1-14.3) gm/dl Hct 32.4 (30.3-42.9) % MCV 79 (79-97) fl MCH 27 L (28-32) pg MCHC 34 (30-34) % RDW 15.0 (13.2-15.2) % Plt Count 253 (140-440) K/mm3 Lymph % (Auto) 31.5 (13.4-35.0) % [place] % (Auto) 10.5 H (0.0-7.3) % Eos % (Auto) 2.5 (0.0-4.3) % Baso % (Auto) 0.8 (0.0-1.8) % Lymph # (Auto) 2.3 (1.2-5.4) K/mm3 [place] # (Auto) 0.8 (0.0-0.8) K/mm3 Eos # (Auto) 0.2 (0.0-0.4) K/mm3 Baso # (Auto) 0.1 (0.0-0.1) K/mm3 Seg Neutrophils % 54.7 (40.0-70.0) % Seg Neutrophils # 4.1 (1.8-7.7) K/mm3 Sodium 139 (137-145) mmol/L Potassium 3.8 (3.6-5.0) mmol/L Chloride 102.8 (98-107) mmol/L Carbon Dioxide 27 (22-30) mmol/L Anion Gap 13 mmol/L BUN 14 (7-17) mg/dL Creatinine 0.7 (0.6-1.2) mg/dL Estimated GFR > 60 ml/min BUN/Creatinine Ratio 20 % Glucose 95 (65-100) mg/dL Calcium 8.6 (8.4-10.2) mg/dL Total Bilirubin < 0.20 (0.1-1.2) mg/dL AST 21 (5-40) units/L ALT 18 (7-56) units/L Alkaline Phosphatase 75 (35-129) units/L Total Protein 7.1 (6.3-8.2) g/dL Albumin 3.8 L (3.9-5) g/dL Albumin/Globulin Ratio 1.2 % Lipase 33 (13-60) units/L HCG, Qual Negative (Negative) Urine Color (Yellow) Urine Turbidity (Clear) Urine pH (5.0-7.0) Ur Specific [place] (1.003-1.030) Urine Protein (Negative) mg/dL Urine Glucose (UA) (Negative) mg/dL Urine Ketones (Negative) mg/dL Urine Blood (Negative) Urine Nitrite (Negative) Urine Bilirubin (Negative) Urine Urobilinogen (<2.0) mg/dL Ur Leukocyte Esterase (Negative) Urine WBC (Auto) (0.0-6.0) /HPF Urine RBC (Auto) (0.0-6.0) /HPF U Epithel Cells (Auto) (0-13.0) /HPF Urine Bacteria (Auto) (Negative) /HPF Urine Mucus /HPF 09/02/20 Range/Units 09:01 WBC (4.5-11.0) K/mm3 RBC (3.65-5.03) M/mm3 Hgb (10.1-14.3) gm/dl Hct (30.3-42.9) % MCV (79-97) fl MCH (28-32) pg MCHC (30-34) % RDW (13.2-15.2) % Plt Count (140-440) K/mm3 Lymph % (Auto) (13.4-35.0) % [place] % (Auto) (0.0-7.3) % Eos % (Auto) (0.0-4.3) % Baso % (Auto) (0.0-1.8) % Lymph # (Auto) (1.2-5.4) K/mm3 [place] # (Auto) (0.0-0.8) K/mm3 Eos # (Auto) (0.0-0.4) K/mm3 Baso # (Auto) (0.0-0.1) K/mm3 Seg Neutrophils % (40.0-70.0) % Seg Neutrophils # (1.8-7.7) K/mm3 Sodium (137-145) mmol/L Potassium (3.6-5.0) mmol/L Chloride (98-107) mmol/L Carbon Dioxide (22-30) mmol/L Anion Gap mmol/L BUN (7-17) mg/dL Creatinine (0.6-1.2) mg/dL Estimated GFR ml/min BUN/Creatinine Ratio % Glucose (65-100) mg/dL Calcium (8.4-10.2) mg/dL Total Bilirubin (0.1-1.2) mg/dL AST (5-40) units/L ALT (7-56) units/L Alkaline Phosphatase (35-129) units/L Total Protein (6.3-8.2) g/dL Albumin (3.9-5) g/dL Albumin/Globulin Ratio % Lipase (13-60) units/L HCG, Qual (Negative) Urine Color Yellow (Yellow) Urine Turbidity Clear (Clear) Urine pH 6.0 (5.0-7.0) Ur Specific [place] 1.015 (1.003-1.030) Urine Protein <15 mg/dl (Negative) mg/dL Urine Glucose (UA) Neg (Negative) mg/dL Urine Ketones Neg (Negative) mg/dL Urine Blood Neg (Negative) Urine Nitrite Neg (Negative) Urine Bilirubin Neg (Negative) Urine Urobilinogen < 2.0 (<2.0) mg/dL Ur Leukocyte Esterase Tr (Negative) Urine WBC (Auto) < 1.0 (0.0-6.0) /HPF Urine RBC (Auto) 1.0 (0.0-6.0) /HPF U Epithel Cells (Auto) 3.0 (0-13.0) /HPF Urine Bacteria (Auto) 1+ (Negative) /HPF Urine Mucus Few /HPF - Radiology Data Radiology results: report reviewed CT abdomen pelvis with contrast INDICATION / CLINICAL INFORMATION: abdominal pain, worse in RLQ. TECHNIQUE: Axial CT imaging of abdomen and pelvis was obtained with IV contrast. Coronal and sagittal reformatted imaging obtained and reviewed. All CT scans at this location are performed using CT dose reduction for ALARA by means of automated exposure control. COMPARISON: Prior CT abdomen from 07/30/2018 was nable to be retrieved from the archive for comparison. FINDINGS: Please note that although IV contrast was injected. There is no IV contrast seen within the abdomen or pelvis. Therefore, the CT scan is essentially a noncontrast exam. CT abdomen shows no obvious abnormality related to the liver, spleen, pancreas, kidneys, or adrenal glands. The gallbladder is mildly distended and there is a large gallstone noted within the gallbladder measuring 4 cm. No obvious gallbladder wall thickening or pericholecystic fluid is noted. CT pelvis demonstrates mildly enlarged uterus containing IUD. Position ing of the IUD is unremarkable. No pelvic mass, free fluid, or focal inflammatory changes noted. There is prominent diastases of the abdominal wall musculature but no evidence of abdominal wall hernia. Mild to moderate amount of stool is seen throughout the colon. A normal appendix is present in the right lower quadrant. GI tract is unremarkable. Source of the patient's right lower quadrant pain is not identified. Visualized lung bases are clear. Visualized osseous structures are grossly unremarkable. IMPRESSION: 1. No acute finding within the abdomen and pelvis. Specifically, the appendix is unremarkable. 2. 4 cm gallstone is present within the gallbladder. Please correlate clinically as to whether this could be causing the patient's right-sided abdominal pain. No CT evidence for acute cholecystitis at this time. 3. Please note that although IV contrast was injected, there was no IV contrast noted within the abdomen or pelvis. lead cytogenetic technologist was informed of this finding. He examined the patient with found evidence for extravasation of contrast within the patient's arm. She was counseled about how to treat the extravasation and told to return to the emergency room if symptoms in her arm get worse. ULTRASOUND ABDOMEN, LIMITED (RIGHT UPPER QUADRANT) INDICATION: pain, gallstone. COMPARISON: None available. FINDINGS: Pancreas: Visualized portion shows no significant abnormality. Liver: Increased echogenicity within the liver. Gallbladder: Gallbladder wall thickening with sludge and calculi. Mild edema of the gallbladder wall is a concern Bile ducts: Normal. Common Bile Duct measures 5.7 mm. Free fluid: None. Additional Findings: None. IMPRESSION: 1. Cholelithiasis with gallbladder wall thickening, acute cholecystitis should be considered 2. Hepatic steatosis - Medical Decision Making This patient presents with a 2-day history of abdominal pain with some radiation towards the back. On examination there is some reproducible tenderness to palpation but the abdomen is soft and nondistended. Labs have been mostly unremarkable including CBC, metabolic panel, urinalysis, and the patient is not . She had a CT scan of the abdomen and pelvis that showed cholelithiasis. Patient had an ultrasound of the right upper quadrant that shows cholelithiasis and concern for cholecystitis with edematous gallbladder wall. General surgery has been contacted and consulted. The patient has been accepted for admission by the hospitalist, Dr. Treviño. Critical Care Time: No Critical care attestation.: If time is entered above; I have spent that time in minutes in the direct care of this critically ill patient, excluding procedure time. ED Disposition Clinical Impression: Cholelithiasis, Cholecystitis Disposition: DC-09 OP ADMIT IP TO THIS HOSP Is pt being admited?: Yes Condition: Serious Time of Disposition: 18:42
[2020-09-02] MEDS ORDERED: ONDANSETRON 4 MG/2 ML INJ IV ONE (17:54)
[2020-09-02] MEDS ORDERED: MORPHINE 4 MG/1 ML INJ IV ONE (17:54)
[2020-09-02] MEDS ORDERED: ALBUTEROL 2.5 MG/3 ML NEBU IH PRN (18:05)
[2020-09-02] MEDS ORDERED: ACETAMINOPHEN 325 MG TAB PO PRN (18:05)
[2020-09-02] MEDS ORDERED: ONDANSETRON 4 MG/2 ML INJ IV PRN (18:05)
--- NOTE | 2020-09-02 18:08 | History and Physical Report ---
History of Present Illness Chief complaint: My stomach is hurting History of present illness: 44 YO Female with Obesity Hypoventilation Syndrome, HTN presents to ED for evaluation. Patient reports "it feels like something is moving in my stomach". Patient states that she has experienced abdominal pain over the last 2 days with persistent symptoms over the same timeframe. Patient states that pain is 6/10, constant, radiates to her back. Patient denies nausea, vomiting. Patient transported to [facility] via private vehicle for further care and evaluation of the aforementioned symptoms. The patient was seen and evaluated in the emergency department. All lab and imaging studies reviewed. Patient underwent abdominal ultrasound and was found to have evidence of acute cholecystitis. Surgical team consulted in the emergency department. Patient treated with IV fluid resuscitation therapy. Patient is pending surgical invention as per surgical team. Patient denies fever, chills, chest pain, palpitation, productive cough, skin rash, recent ill contact, ingestion of food/water from new or different sources, or known exposure to COVID-19. No prior admission for review. All medication listed at time of admission has been reconciled. Past History Past Medical History: hypertension Past Surgical History: No surgical history, Other (Reviewed) Social history: Family history: hypertension Medications and Allergies Allergies Allergy/AdvReac Type Severity Reaction Status Date / Time No Known Allergies Allergy Unverified 07/28/18 03:01 Home Medications Medication Instructions Recorded Confirmed Last Taken Type Docusate Sodium [Colace] 100 mg PO BID PRN #60 capsule 08/01/18 Unknown Rx Ferrous Sulfate [Feosol 325 MG tab] 325 mg PO TID #90 tablet 08/01/18 Unknown Rx Labetalol HCl [Labetalol 300mg TAB] 300 mg PO BID #60 tablet 08/01/18 Unknown Rx oxyCODONE /ACETAMINOPHEN [Percocet 1 tab PO Q6HR PRN #40 tablet 08/01/18 Unknown Rx 5/325] Active Meds: Active Medications Acetaminophen (Acetaminophen 325 Mg Tab) 650 mg PO Q4H PRN PRN Reason: Pain MILD(1-3)/Fever >100.5/CALDERA Albuterol (Albuterol 2.5 Mg/3 Ml Nebu) 2.5 mg IH Q4HRT PRN PRN Reason: Shortness Of Breath Ferrous Sulfate (Ferrous Sulfate 325 Mg Tab) 325 mg PO TID LUIS MANUEL Sodium Chloride (Nacl 0.9% 1000 Ml) 1,000 mls @ 125 mls/hr IV ONCE ONE Stop: 09/03/20 01:35 Miscellaneous Medication (Labetalol Hcl [Labetalol 300mg Tab]) 300 mg PO BID LUIS MANUEL Morphine Sulfate (Morphine 4 Mg/1 Ml Inj) 2 mg IV Q4H PRN PRN Reason: Pain , Severe (7-10) Ondansetron HCl (Ondansetron 4 Mg/2 Ml Inj) 4 mg IV Q8H PRN PRN Reason: Nausea And Vomiting Sodium Chloride (Sodium Chloride 0.9% 10 Ml Flush Syringe) 10 ml IV BID LUIS MANUEL Sodium Chloride (Sodium Chloride 0.9% 10 Ml Flush Syringe) 10 ml IV PRN PRN PRN Reason: LINE FLUSH Review of Systems Constitutional: no weight loss, no weight gain, no fever, no chills Ears, nose, mouth and throat: no ear pain, no ear discharge, no nose pain, no nasal congestion, no sinus pressure Breasts: no change in shape, no swelling, no mass Cardiovascular: no chest pain, no edema, no lightheadedness Respiratory: no cough, no shortness of breath, no dyspnea on exertion Gastrointestinal: abdominal pain, no nausea, no vomiting, no diarrhea Genitourinary Female: no pelvic pain, no flank pain, no urinary frequency, no urgency, no stress incontinence, no post void dribbling, no urge incontinence, no mixed incontinence Rectal: no pain, no incontinence, no bleeding Musculoskeletal: no neck stiffness, no neck pain, no shooting arm pain, no arm numbness/tingling, no low back pain, no shooting leg pain Integumentary: no rash, no pruritis, no redness, no sores Neurological: no head injury, no transient paralysis, no paralysis, no parathesias, no tingling, no seizures, no syncope Psychiatric: no anxiety, no memory loss, no sleep disturbances, no insomnia, no change in libido, no suicidal ideation Endocrine: no cold intolerance, no heat intolerance, no excessive thirst, no polyuria, no nocturia Hematologic/Lymphatic: no easy bruising, no easy bleeding, no lymphadenopathy Allergic/Immunologic: no allergic rhinitis, no wheezing Exam - Constitutional Vitals: Temp Pulse Resp BP Pulse Ox 97.8 F 75 20 146/80 99 09/02/20 08:18 09/02/20 08:18 09/02/20 08:18 09/02/20 08:18 09/02/20 08:18 General appearance: Present: mild distress - EENT Eyes: Present: PERRL ENT: hearing intact, clear oral mucosa - Neck Neck: Present: supple, normal ROM - Respiratory Respiratory effort: normal Respiratory: bilateral: CTA - Cardiovascular Heart Sounds: Present: S1 & S2. Absent: rub, click - Extremities Extremities: pulses symmetrical, No edema Peripheral Pulses: within normal limits - Abdominal General gastrointestinal: Present: soft, non-tender, non-distended, normal bowel sounds Female genitourinary: Present: normal - Integumentary Integumentary: Present: clear, warm, dry - Musculoskeletal Musculoskeletal: gait normal, strength equal bilaterally - Psychiatric Psychiatric: appropriate mood/affect, intact judgment & insight - Neurologic Neurologic: CNII-XII intact, moves all extremities Results - Labs CBC & Chem 7: 09/02/20 08:50 09/02/20 08:50 Labs: Abnormal lab results 09/02/20 09/02/20 Range/Units 08:50 08:50 MCH 27 L (28-32) pg [place] % (Auto) 10.5 H (0.0-7.3) % Albumin 3.8 L (3.9-5) g/dL Assessment and Plan - Patient Problems (1) Cholecystitis Current Visit: Yes Status: Acute Plan to address problem: CT scan abdomen pelvis, abdominal ultrasound, surgical team consulted, n.p.o., IV fluid resuscitation therapy, bowel rest, surgical team consulted and is pending surgical intervention at this time. (2) Obesity hypoventilation syndrome Current Visit: Yes Status: Acute Plan to address problem: Balanced diet, increase physical activity discharge, (3) DVT prophylaxis Current Visit: Yes Status: Acute Plan to address problem: SCDs bilateral lower extremities while in bed, patient is ambulatory
[2020-09-02] MEDS ORDERED: FERROUS SULFATE 325 MG TAB PO SCH (20:00)
[2020-09-02] MEDS: MORPHINE 4 MG/1 ML INJ IV PRN (20:01)
[2020-09-02] MEDS ORDERED: NON-FORMULARY EACH (Labetalol Hcl [Labetalol 300mg Tab] 300 MG Tablet) PO SCH (22:00)
[2020-09-02] MEDS: PIPERACIL/TAZOBACTA 4.5/NS 100 4.5 GM/100 ML VIAL IV SCH (22:40)
[2020-09-03 04:43] LABS: Basophils % (Auto) 0.5 % (0.0-1.8); Eosinophils # (Auto) 0.1 K/mm3 (0.0-0.4); Eosinophils % (Auto) 1.4 % (0.0-4.3); Hematocrit 32.5 % (30.3-42.9); Hemoglobin 10.9 gm/dl (10.1-14.3); Lymphocytes # (Auto) 1.5 K/mm3 (1.2-5.4); Lymphocytes % (Auto) 20.4 % (13.4-35.0); Mean Corpuscular HGB Conc 34 % (30-34); Mean Corpuscular Volume 79 fl (79-97); Monocytes # (Auto) 0.5 K/mm3 (0.0-0.8); Monocytes % (Auto) 6.5 % (0.0-7.3); Platelet Count 229 K/mm3 (140-440); Red Blood Count 4.13 M/mm3 (3.65-5.03); Red Cell Distribution Width 15.2 % (13.2-15.2)
[2020-09-03] MEDS: MORPHINE 4 MG/1 ML INJ IV PRN (04:47)
[2020-09-03 05:09] LABS: Alanine Aminotransferase 17 units/L (7-56); Albumin 3.8 g/dL (3.9-5); Blood Urea Nitrogen 11 mg/dL (7-17); Hemolysis Index 3
[2020-09-03 05:12] LABS: BUN/Creatinine Ratio 16
[2020-09-03] MEDS: PIPERACIL/TAZOBACTA 4.5/NS 100 4.5 GM/100 ML VIAL IV SCH (07:47)
[2020-09-03] MEDS ORDERED: SCOPOLAMINE TRANSDERMAL PATCH 72 HR TD NR (08:41)
--- NOTE | 2020-09-03 09:38 | Consultation ---
History of Present Illness Consult date: 09/03/20 Reason for consult: abdominal pain Chief complaint: Abdominal pain - History of present illness History of present illness: 44-year-old female with past medical history of hypertension who presents to the hospital with 3 days of constant, sharp right upper quadrant abdominal pain. The pain does not radiate. The pain started suddenly and has remained at a constant level for the past 3 days. The patient states that she ate her normal meal and the pain started several hours later. She has never had pain like this in the past. Since receiving antibiotics and pain medication, the patient states that the pain has resolved. She denies fevers or chills. No nausea or vomiting. No diarrhea. Past History Past Medical History: hypertension, other Past Surgical History: No surgical history, Other (Reviewed) Social history: Family history: hypertension Medications and Allergies Allergies Allergy/AdvReac Type Severity Reaction Status Date / Time No Known Allergies Allergy Unverified 07/28/18 03:01 Home Medications Medication Instructions Recorded Confirmed Last Taken Type Docusate Sodium [Colace] 100 mg PO BID PRN #60 capsule 08/01/18 Unknown Rx Ferrous Sulfate [Feosol 325 MG tab] 325 mg PO TID #90 tablet 08/01/18 Unknown Rx Labetalol HCl [Labetalol 300mg TAB] 300 mg PO BID #60 tablet 08/01/18 Unknown Rx oxyCODONE /ACETAMINOPHEN [Percocet 1 tab PO Q6HR PRN #40 tablet 08/01/18 Unknown Rx 5/325] Active Meds: Active Medications Acetaminophen (Acetaminophen 325 Mg Tab) 650 mg PO Q4H PRN PRN Reason: Pain MILD(1-3)/Fever >100.5/CALDERA Albuterol (Albuterol 2.5 Mg/3 Ml Nebu) 2.5 mg IH Q4HRT PRN PRN Reason: Shortness Of Breath Ferrous Sulfate (Ferrous Sulfate 325 Mg Tab) 325 mg PO TID [facility] Last Admin: 09/02/20 21:20 Dose: 325 mg Documented by: Piperacillin Sod/Tazobactam Sod (Zosyn/Ns 4.5gm/100ml) 4.5 gm in 100 mls @ 200 mls/hr IV Q8H [facility]; Protocol Last Admin: 09/03/20 07:47 Dose: 200 mls/hr Documented by: Labetalol HCl (Labetalol 100 Mg Tab) 300 mg PO BID [facility] Last Admin: 09/02/20 22:39 Dose: 300 mg Documented by: Morphine Sulfate (Morphine 4 Mg/1 Ml Inj) 2 mg IV Q4H PRN PRN Reason: Pain , Severe (7-10) Last Admin: 09/03/20 04:47 Dose: 2 mg Documented by: Ondansetron HCl (Ondansetron 4 Mg/2 Ml Inj) 4 mg IV Q8H PRN PRN Reason: Nausea And Vomiting Last Admin: 09/03/20 01:08 Dose: 4 mg Documented by: Scopolamine (Scopolamine Transdermal Patch 72 Hr) 1 each TD ONCE NR Stop: 09/03/20 18:00 Sodium Chloride (Sodium Chloride 0.9% 10 Ml Flush Syringe) 10 ml IV BID [facility] Last Admin: 09/02/20 22:06 Dose: 10 ml Documented by: Sodium Chloride (Sodium Chloride 0.9% 10 Ml Flush Syringe) 10 ml IV PRN PRN PRN Reason: LINE FLUSH Review of Systems All systems: negative (10 point ROS performed and negative except for that listed in HPI) Exam Vital Signs Temp Pulse Resp BP Pulse Ox 97.8 F 75 20 146/80 99 09/02/20 08:18 09/02/20 08:18 09/02/20 08:18 09/02/20 08:18 09/02/20 08:18 Narrative exam: Gen.: Awake, alert, oriented x3. No apparent distress ENT: Trachea midline. No lymphadenopathy. No scleral icterus or conjunctival pallor CV: S1, S2 present Respiratory: No audible wheezes Abdomen: Soft, nondistended, nontender, obese. No rebound, rigidity, guarding Extremities: No clubbing, cyanosis, edema Results - Labs 09/03/20 04:18 09/03/20 04:18 Abnormal lab results 09/02/20 09/03/20 09/03/20 Range/Units 08:50 04:18 04:18 MCH 27 L (28-32) pg Seg Neutrophils % 71.2 H (40.0-70.0) % Albumin 3.8 L 3.8 L (3.9-5) g/dL Diabetes panel 09/02/20 09/03/20 Range/Units 08:50 04:18 Sodium 139 138 (137-145) mmol/L Potassium 3.8 3.9 (3.6-5.0) mmol/L Chloride 102.8 103.5 (98-107) mmol/L Carbon Dioxide 27 28 (22-30) mmol/L BUN 14 11 (7-17) mg/dL Creatinine 0.7 0.7 (0.6-1.2) mg/dL Glucose 95 100 (65-100) mg/dL Calcium 8.6 9.0 (8.4-10.2) mg/dL AST 21 20 (5-40) units/L ALT 18 17 (7-56) units/L Alkaline Phosphatase 75 64 (35-129) units/L Total Protein 7.1 6.6 (6.3-8.2) g/dL Albumin 3.8 L 3.8 L (3.9-5) g/dL Calcium panel 09/02/20 09/03/20 Range/Units 08:50 04:18 Calcium 8.6 9.0 (8.4-10.2) mg/dL Albumin 3.8 L 3.8 L (3.9-5) g/dL Pituitary panel 09/02/20 09/03/20 Range/Units 08:50 04:18 Sodium 139 138 (137-145) mmol/L Potassium 3.8 3.9 (3.6-5.0) mmol/L Chloride 102.8 103.5 (98-107) mmol/L Carbon Dioxide 27 28 (22-30) mmol/L BUN 14 11 (7-17) mg/dL Creatinine 0.7 0.7 (0.6-1.2) mg/dL Glucose 95 100 (65-100) mg/dL Calcium 8.6 9.0 (8.4-10.2) mg/dL Adrenal panel 09/02/20 09/03/20 Range/Units 08:50 04:18 Sodium 139 138 (137-145) mmol/L Potassium 3.8 3.9 (3.6-5.0) mmol/L Chloride 102.8 103.5 (98-107) mmol/L Carbon Dioxide 27 28 (22-30) mmol/L BUN 14 11 (7-17) mg/dL Creatinine 0.7 0.7 (0.6-1.2) mg/dL Glucose 95 100 (65-100) mg/dL Calcium 8.6 9.0 (8.4-10.2) mg/dL Total Bilirubin < 0.20 0.40 (0.1-1.2) mg/dL AST 21 20 (5-40) units/L ALT 18 17 (7-56) units/L Alkaline Phosphatase 75 64 (35-129) units/L Total Protein 7.1 6.6 (6.3-8.2) g/dL Albumin 3.8 L 3.8 L (3.9-5) g/dL - Imaging CT scan - abdomen: report reviewed, image reviewed CT scan - pelvis: report reviewed, image reviewed US - abdomen: report reviewed, image reviewed Assessment and Plan 44-year-old female with acute calculus cholecystitis All lab and imaging studies were reviewed. Plan: 1. Recommend cholecystectomy. I explained the pathophysiology of gallbladder disease to the patient. I discussed all risks, benefits, alternatives to surgery with the patient. Patient understands and despite this, patient does not want surgery as she states she is feeling better. She prefers to try diet modification and observe for recurrence of symptoms. I explained to patient that it is likely that her symptoms will return. If they do, she can follow up with me in the surgery clinic to schedule elective cholecystectomy. She understands. 2. Start clear liquid diet 3. IVF 4. IV abx - on zosyn 5. prn pain control 6. GI ppx 7. If patient tolerated CLD, may be discharged home with 10 days of cipro/flagyl. Discussed with Dr. Nguyen. Thank you for this consultation. Please call with any questions or concerns. Evaluation and treatment of this patient was during the time of the national and state emergency arising from COVID19 coronavirus pandemic. Treatment and procedures performed meet the current and available best practice and guidelines for patient during the COVID pandemic.
[2020-09-03 11:30] VITALS: BP 144/86
--- NOTE | 2020-09-03 11:55 | Discharge Summary ---
Providers - Providers Date of Admission: 09/02/20 18:05 Date of discharge: 09/03/20 Attending physician: ESTEFANY CINTRON 09/02/20 17:46 Consult to Physician [CONS] Routine Comment: Consulting Provider: LAURA PADRON Physician Instructions: Reason For Exam: acute cholecystitis Primary care physician: [employer] Hospitalization Reason for admission: Abdominal pain/right lower quadrant Condition: Good Pertinent studies: CT abdomen and pelvis: No acute findings within the abdomen and pelvis appendix is normal 4 cm gallstone present within the gallbladder no CT evidence for acute cholecystitis at this point next Abdominal ultrasound; cholelithiasis with gallbladder wall thickening acute cholecystitis should be considered, hepatic steatosis hepatic steatosis Hospital course: 44-year-old female patient was admitted with abdominal pain Initial evaluation CT abdomen and pelvis findings consistent with 4 cm call stones in the gallbladder no evidence of acute cholecystitis on CT patient was admitted placed on n.p.o. status managed with IV fluids empiric antibiotics surgery evaluated the patient and recommended cholecystectomy however patient wanted to try medications first and if no improvement she wants to get acute cholecystectomy done surgeon explained risks and benefits and consequences of refusing cholecystectomy, and advised her to take oral antibiotics and clear liquids advance as tolerated and return to her office per schedule for further evaluation for elective cholecystectomy. Today patient is comfortable still has mild pain however tolerating clear to full liquid diet Vital signs stable, physical examination prior to discharge has no new findings Cleared by surgeon for discharge and follow-up per schedule Patient is hemodynamically and clinically clinically stable at discharge Discharge diagnosis; --Possible acute cholecystitis Current Visit: Yes Status: Acute Surgery evaluated the patient , recommend cholecystectomy Patient wants to try medical management and follow-up in outpatient for further evaluation if no improvement Patient discharged on oral antibiotics with follow-up visit to surgeon --Obesity : BMI 37.2 Current Visit: Yes Status: Acute Advised diet modification exercise as tolerated and weight reduction when stable --cholelithiasis Current Visit: Yes Status: Acute Supportive care --hepatic steatosis : Current Visit: Yes Status: Acute Due to possible acute cholecystitis Continue antibiotics recommended by surgery Patient refused cholecystectomy at this point Follow outpatient for elective cholecystectomy Cleared by surgeonLYDIA on antibiotics Follow-up per schedule Disposition: DC-01 TO HOME OR SELFCARE Final Discharge Diagnosis (Prints w/discharge instructions): Possible acute cholecystitis. Cholelithiasis. Hepatic steatosis. Obesity BMI 37.2 Time spent for discharge: 35 min Core Measure Documentation - Palliative Care Palliative Care/ Comfort Measures: Not Applicable - Core Measures Any of the following diagnoses?: none Exam - Constitutional Vitals: Temp Pulse Resp BP Pulse Ox 98.2 F 69 18 144/86 100 09/03/20 11:03 09/03/20 11:03 09/03/20 11:03 09/03/20 11:03 09/03/20 11:03 General appearance: Present: no acute distress, well-nourished - EENT Eyes: Present: PERRL, EOM intact - Neck Neck: Present: supple, normal ROM - Respiratory Respiratory effort: normal Respiratory: bilateral: diminished, negative: rales, rhonchi, wheezing - Cardiovascular Rhythm: regular Heart Sounds: Present: S1 & S2 - Extremities Extremities: no ischemia, No edema - Abdominal General gastrointestinal: Present: soft, non-tender, non-distended, normal bowel sounds - Integumentary Integumentary: Present: clear, warm - Musculoskeletal Musculoskeletal: strength equal bilaterally, generalized weakness - Psychiatric Psychiatric: appropriate mood/affect, cooperative - Neurologic Neurologic: CNII-XII intact, moves all extremities Plan Activity: no restrictions Diet: other (Full liquid diet advance as tolerated) Additional Instructions: If you have worsening symptoms contact MD or go to emergency room. Advised to follow surgeon Dr. Padron in 1 to 2 weeks . Follow up with: LAURA PADRON DO [Staff Physician] - 6 Weeks (as needed) PRIMARY CARE, [Primary Care Provider] - 3-5 Days Prescriptions: Ciprofloxacin HCl 500 mg PO BID #20 tablet metroNIDAZOLE [Flagyl] 500 mg PO Q8HR #30 tablet Pantoprazole [Protonix] 40 mg PO QDAY #14 tablet
== END 2020-09-03 16:45 | disposition home or self-care (01) ==
LOC: ED 08:14 → 3A 18:05 → 3B-SURG 20:51
PROVIDERS: ADMIT Internal Medicine; ATTEND Internal Medicine
DX: K80.10 Calculus of gallbladder with chronic cholecystitis without obstruction (principal); I10 Essential (primary) hypertension; E66.2 Morbid (severe) obesity with alveolar hypoventilation; Z68.37 Body mass index [BMI] 37.0-37.9, adult
CPT/HCPCS: 36415; 74177; 76705; 80053; 81001; 83690; 84703; 85025; 96365; 96366; 96375; 96376; 99285; G0378; J2270; J2405; J2543; J7030; Q9967

== ENCOUNTER 2020-09-10 06:18 | Emergency (ER) | payer OTHER ==
[2020-09-10 06:39] VITALS: BP 158/96
[2020-09-10 07:38] LABS: Basophils % (Auto) 0.4 % (0.0-1.8); Eosinophils # (Auto) 0.2 K/mm3 (0.0-0.4); Eosinophils % (Auto) 2.8 % (0.0-4.3); Hematocrit 34.9 % (30.3-42.9); Hemoglobin 11.7 gm/dl (10.1-14.3); Lymphocytes % (Auto) 24.7 % (13.4-35.0); Mean Corpuscular HGB Conc 34 % (30-34); Mean Corpuscular Volume 77 fl (79-97); Monocytes # (Auto) 0.6 K/mm3 (0.0-0.8); Monocytes % (Auto) 7.6 % (0.0-7.3); Platelet Count 304 K/mm3 (140-440); Red Blood Count 4.52 M/mm3 (3.65-5.03); Red Cell Distribution Width 14.8 % (13.2-15.2)
[2020-09-10 07:52] LABS: INR 1.07 (0.87-1.13)
--- NOTE | 2020-09-10 07:52 | Ultrasound Report ---
LIMITED RUQ ABDOMINAL ULTRASOUND INDICATION: ruq pain. COMPARISON: Ultrasound and CT dated 09/02/2020. FINDINGS: Pancreas: Visualized portions show no significant abnormality. Abdominal Aorta: No significant abnormality. IVC: No significant abnormality. Liver: The liver measures 14.2 cm in length. Mild steatosis is again noted. No focal liver lesion.. Normal hepatopedal blood flow in the main portal vein. Gallbladder: Large gallstone is again seen in the proximal gallbladder. The gallbladder appears mildl y distended measuring 14 cm in length with mild wall thickening measuring 5 mm. No significant perich olecystic fluid is appreciated.. Bile ducts: No significant abnormality. Common bile duct measures 3.6 mm. Right kidney: No significant abnormality visualized. Free fluid: None. Additional Findings: None. IMPRESSION: Large gallstone with mildly dilated gallbladder and wall thickening. The overall appearance is unchan ged since 09/02/2020 ultrasound. Early acute cholecystitis is not entirely excluded. Please correlate with the patient's clinical presentation and laboratory values. Mild hepatic steatosis.. Signer Name: Bobby Samuels Jr, MD Signed: 09/10/2020 7:48 AM Workstation Name: [id number]
[2020-09-10 07:54] LABS: Alanine Aminotransferase 13 units/L (7-56); Albumin 4.1 g/dL (3.9-5); Blood Urea Nitrogen 11 mg/dL (7-17); Calcium 8.7 mg/dL (8.4-10.2); Hemolysis Index 2
[2020-09-10 08:09] LABS: BUN/Creatinine Ratio 16
[2020-09-10 09:08] LABS: Bilirubin,Urine NEG (Negative); Blood,Urine NEG (Negative); Color,Urine Yellow (Yellow); Protein,Urine <15 mg/dL mg/dL (Negative); Urobilinogen,Urine < 2.0 mg/dL (<2.0)
--- NOTE | 2020-09-10 10:41 | Emergency Department Report ---
ED Abdominal Pain HPI - General Chief Complaint: Abdominal Pain Stated Complaint: ABDOMINAL PAIN PUI?: No Time Seen by Provider: 09/10/20 10:39 Source: patient Mode of arrival: Ambulatory Limitations: No Limitations - History of Present Illness Initial Comments: Patient is a 44-year-old female that comes to the emergency room today with abdominal pain. This is acute on abdominal pain. She has cholelithiasis and has been recommended to have surgery, however she declined surgery during her recent admission. She comes because she is out of her oxycodone pain medications and wants a refill. Patient was discharged on 527 with recommendations for gallbladder removal. Patient did not follow-up. Patient has no nausea or vomiting. She denies fever or chills. Patient is ambulatory, nontoxic and [id number] in triage. She is taking p.o. EMR reviewed MD Complaint: abdominal pain -: Gradual, week(s) Location: diffuse Radiation: none Migration to: no migration Severity: moderate Severity scale (0 -10): 10 Quality: aching Consistency: constant Improves With: nothing Worsens With: nothing Context: recent antibiotic use Associated Symptoms: denies other symptoms - Related Data Previous Rx's Medication Instructions Recorded Last Taken Type Ciprofloxacin HCl 500 mg PO BID #20 tablet 09/03/20 Unknown Rx Pantoprazole [Protonix] 40 mg PO QDAY #14 tablet 09/03/20 Unknown Rx metroNIDAZOLE [Flagyl] 500 mg PO Q8HR #30 tablet 09/03/20 Unknown Rx Allergies Allergy/AdvReac Type Severity Reaction Status Date / Time No Known Allergies Allergy Unverified 07/28/18 03:01 ED Review of Systems ROS: Stated complaint: ABDOMINAL PAIN Other details as noted in HPI Comment: All other systems reviewed and negative ED Past Medical Hx - Past Medical History Previous Medical History?: Yes Hx Hypertension: No Hx Diabetes: No Hx Deep Vein Thrombosis: No Hx Renal Disease: No Hx Sickle Cell Disease: No Hx Seizures: No Hx Asthma: No Hx HIV: No Additional medical history: cholelithiasis - Surgical History Past Surgical History?: Yes Additional Surgical History: - Family History Family history: no significant - Social History Smoking Status: Never Smoker Substance Use Type: None - Medications Home Medications: Home Medications Medication Instructions Recorded Confirmed Last Taken Type Ciprofloxacin HCl 500 mg PO BID #20 tablet 09/03/20 Unknown Rx Pantoprazole [Protonix] 40 mg PO QDAY #14 tablet 09/03/20 Unknown Rx metroNIDAZOLE [Flagyl] 500 mg PO Q8HR #30 tablet 09/03/20 Unknown Rx ED Physical Exam - General Limitations: No Limitations General appearance: alert, in no apparent distress - Head Head exam: Present: atraumatic, normocephalic - Eye Eye exam: Present: normal appearance - ENT ENT exam: Present: mucous membranes moist - Neck Neck exam: Present: normal inspection - Respiratory Respiratory exam: Present: normal lung sounds bilaterally. Absent: respiratory distress - Cardiovascular Cardiovascular Exam: Present: regular rate, normal rhythm. Absent: systolic murmur, diastolic murmur, rubs, gallop - GI/Abdominal GI/Abdominal exam: Present: soft, normal bowel sounds - Extremities Exam Extremities exam: Present: normal inspection - Back Exam Back exam: Present: normal inspection - Neurological Exam Neurological exam: Present: alert, oriented X3 - Psychiatric Psychiatric exam: Present: normal affect, normal mood - Skin Skin exam: Present: warm, dry, intact, normal color. Absent: rash ED Course Vital Signs 09/10/20 06:39 Temperature 98.2 F Pulse Rate 81 Respiratory 16 Rate Blood Pressure 158/96 [Left] O2 Sat by Pulse 100 Oximetry ED Medical Decision Making - Lab Data Result diagrams: 09/10/20 07:08 09/10/20 07:08 - Radiology Data Last imaging noted on 6 4 see report in EMR - Medical Decision Making Labs 09/10/20 09/10/20 09/10/20 07:08 07:08 07:08 WBC 8.1 RBC 4.52 Hgb 11.7 Hct 34.9 MCV 77 L MCH 26 L MCHC 34 RDW 14.8 Plt Count 304 Lymph % (Auto) 24.7 Baker % (Auto) 7.6 H Eos % (Auto) 2.8 Baso % (Auto) 0.4 Lymph # (Auto) 2.0 Baker # (Auto) 0.6 Eos # (Auto) 0.2 Baso # (Auto) 0.0 Seg Neutrophils % 64.5 Seg Neutrophils # 5.2 PT 14.4 INR 1.07 Sodium 136 L Potassium 3.8 Chloride 99.6 Carbon Dioxide 28 Anion Gap 12 BUN 11 Creatinine 0.7 Estimated GFR > 60 BUN/Creatinine Ratio 16 Glucose 104 H Calcium 8.7 Total Bilirubin 0.20 AST 18 ALT 13 Alkaline Phosphatase 64 Total Protein 7.3 Albumin 4.1 Albumin/Globulin Ratio 1.3 Lipase HCG, Quant Urine Color Urine Turbidity Urine pH Ur Specific [place] Urine Protein Urine Glucose (UA) Urine Ketones Urine Blood Urine Nitrite Urine Bilirubin Urine Urobilinogen Ur Leukocyte Esterase Urine WBC (Auto) Urine RBC (Auto) U Epithel Cells (Auto) 09/10/20 09/10/20 09/10/20 07:08 07:08 08:45 WBC RBC Hgb Hct MCV MCH MCHC RDW Plt Count Lymph % (Auto) Baker % (Auto) Eos % (Auto) Baso % (Auto) Lymph # (Auto) Baker # (Auto) Eos # (Auto) Baso # (Auto) Seg Neutrophils % Seg Neutrophils # PT INR Sodium Potassium Chloride Carbon Dioxide Anion Gap BUN Creatinine Estimated GFR BUN/Creatinine Ratio Glucose Calcium Total Bilirubin AST ALT Alkaline Phosphatase Total Protein Albumin Albumin/Globulin Ratio Lipase 26 HCG, Quant < 2 Urine Color Yellow Urine Turbidity Slightly-cloudy Urine pH 5.0 Ur Specific [place] 1.017 Urine Protein <15 mg/dl Urine Glucose (UA) Neg Urine Ketones Neg Urine Blood Neg Urine Nitrite Neg Urine Bilirubin Neg Urine Urobilinogen < 2.0 Ur Leukocyte Esterase Sm Urine WBC (Auto) 2.0 Urine RBC (Auto) 1.0 U Epithel Cells (Auto) 13.0 Vital Signs 09/10/20 06:39 Temperature 98.2 F Pulse Rate 81 Respiratory 16 Rate Blood Pressure 158/96 [Left] O2 Sat by Pulse 100 Oximetry Labs were noted they are all stable, not increased from her last visit. Her lipase is 26. Her LFTs unchanged and her white count is normal. Her abdominal exam is benign. She is very focused on getting a refill of her narcotic pain medications. Is very angry that we will not give them to her. I have reviewed with her her discharge packet from her last admission showing her where she was referred to a surgeon, she acted like she did not understand that. She thought that she was given 2 options 1 being pain management and second surgery. I told her she could not continue to use oxycodone on a long-term basis unless she was seen by chronic pain clinic. She called her while we were in triage and I discussed with him also the plan of care including follow-up with general surgery as instructed prior to schedule removal of her gallbladder as recommended by general surgery. They both verbalized understanding. Patient is to continue with her Cipro, Flagyl and Protonix at home. I have instructed her on a bland diet and things that she can do at home to help mitigate her pain until she can be seen by surgery. She verbalizes understanding. EMR and prior studies reviewed. There is no indication for emergent surgery. White count and LFTs are improved from last week. Vital signs are normal. She has no fever, tachycardia or hypotension. She is taking p.o. On reexam patient again has had no nausea or vomiting. She is requesting refill of her oxycodone pain prescription. Patient being discharged home with a detailed discharge plan of care including referral to surgery. I have given her a written copy of the instructions and I have verbally spoke with her on the telephone and instructed him what next steps are. She is to continue her home antibiotics and Protonix. Patient and verbalized understanding of discharge plan of care - Differential Diagnosis Acute on chronic abdominal pain with chronic cholelithiasis recommended for Critical care attestation.: If time is entered above; I have spent that time in minutes in the direct care of this critically ill patient, excluding procedure time. ED Disposition Clinical Impression: Cholelithiasis, Chronic abdominal pain Disposition: DC-01 TO HOME OR SELFCARE Is pt being admited?: No Does the pt Need Aspirin: No Condition: Stable Instructions: Cholelithiasis, Abdominal Pain (ED) Additional Instructions: CALL SURGEON PAULINA FOR SURGERY TO BE SCHEDULED CONTINUE HOME MEDS OVER THE COUNTER PAIN MEDICATIONS OR SEE SURGEON FOR PAIN CONTROL BLAND DIET WILL HELP WITH PAIN STAY WELL HYDRATED WITH WATER Referrals: LAURA PADRON DO [Staff Physician] - 3-5 Days Time of Disposition: 10:43
[2020-09-10] MEDS ORDERED: HYDROcodone/ACETAMINOPHEN 5-325 MG TAB PO ONE (10:44)
== END 2020-09-10 10:49 | disposition home or self-care (01) ==
LOC: ED 06:18
DX: K80.20 Calculus of gallbladder without cholecystitis without obstruction (principal); R10.9 Unspecified abdominal pain; G89.29 Other chronic pain; Z79.899 Other long term (current) drug therapy; Z98.890 Other specified postprocedural states
CPT/HCPCS: 36415; 76705; 80053; 81001; 83690; 84702; 85025; 85610